=== PATIENT | female | born 1995 | race Caucasian/White ===

== ENCOUNTER 2019-09-30 08:20 | Outpatient (RCR) | payer OTHER, SELFPAY ==
[2019-09-30 10:03] LABS: Hematocrit 32.5 % (37.0-47.0); Hemoglobin 10.8 g/dL (12.0-15.0)
[2019-09-30 10:17] LABS: Glucose 1 Hour PP 50gm Dose 130 mg/dL
[2019-09-30 10:56] LABS: HIV 1/2 Ab P24 Ag Result Negative (Negative)
[2019-09-30] MEDS: RHO(D) IMMUNE GLOBULIN 300 MCG SYRINGE IM (14:19)
[2019-10-01 07:48] LABS: Rapid Plasma Reagin Non-Reactive (NonReactive)
== END 2019-12-29 23:59 | disposition home or self-care (01) ==
LOC: ANHLAB 08:20
PROVIDERS: PCP Internal Medicine Cardiovascular Disease; Visit Provider Obstetrics & Gynecology
DX: Z36.89 Encounter for other specified antenatal screening (principal); Z29.13 Encounter for prophylactic Rho(D) immune globulin; O36.0990 Maternal care for other rhesus isoimmunization, unspecified trimester, not applicable or unspecified; Z3A.00 Weeks of gestation of pregnancy not specified
CPT/HCPCS: 36415; 82947; 85014; 85018; 86592; 86703; 86850; 86900; 86901; 90384; 96372; G0432; J2790

== ENCOUNTER 2019-12-14 06:15 | Inpatient (IN) | payer OTHER, SELFPAY ==
[2019-12-14] VITALS (176 sets, daily range): BP systolic 77–129; BP diastolic 21–85; PULSE 66–119; TEMP 36.3–37.5; O2SAT 86–100; BMI 29.9
--- NOTE | 2019-12-14 07:17 | LDADM ---
This patient, Meredith Bernard, was admitted to Labor/Delivery/Recovery 109 on 12/14/19 at 06:15. Plans for labor, pain management and were discussed with patient. Patient/family oriented to hospital policies and general routines including ID bracelet, bed and alarms, visiting hours, pain management, procedures, bathroom and other care routines, personal items, smoking policy, room service/diet and guest tray routines, infant security routines, and visiting hours. Patient/Family are encouraged to report perceived risks to care and to ask questions if they do not understand what they are told or what they should do. See OBIX for further documentation.
--- NOTE | 2019-12-14 07:17 | WPDANESEPP ---
Anes - Eval Pre Procedure Procedure: Operation Date: 12/16/19 10:30 Labor epidural Date/Time: 12/14/19 07:17 Surgeon: radha Preop Diagnosis: pain during labor Pre Op Diagnosis: Induction of Labor Patient Data Age: 24 Gender: F Height: Weight: Last Vital Signs Pulse 95 12/14/19 07:00 BP 122/78 12/14/19 07:00 Allergies Allergy/AdvReac Type Severity Reaction Status Date / Time codeine Allergy Mild hives Verified 03/20/15 19:37 Home Medications Medication Instructions Recorded Confirmed Type PNV cmb#95-ferrous fumarate-FA 1 tablet PO DAILY 11/29/19 11/29/19 History [] ferrous sulfate 325 mg PO DAILY 11/29/19 11/29/19 History sertraline 50 mg PO DAILY 11/29/19 11/29/19 History Patient hx anesthesia problems: none Family hx anesthesia problems: none PMFSH Past Medical History Medical History (Updated 12/14/19 @ 07:19 by Vikki Colón CRNA) Anemia Depression Intrauterine Family History Family History (Updated 11/29/19 @ 14:33 by Vitor Singh RN) Other No pertinent family history Social History Social History Substance use: never Gender identity (if verbalized by the patient): Female Spiritual care concerns: No Exam Day of Procedure 12/14/19 07:17
--- NOTE | 2019-12-14 07:37 | WPDOBADMIT ---
Obstetrics - Admit Note Admission Note: record reviewed. No pertinent additions to the history and/or any subsequent changes in the physical findings that are not consistent with the expected course of the were found. Additions to the history and/or subsequent changes in the physical findings follow. G1 at 39+0 for induction of labor. Cephalic presentation confirmed at bedside. Cervix 1-230/-2. AROM with clear fluid. GBS+ so continue antibiotics.
[2019-12-14] MEDS: LACTATED RINGERS 1,000 ML 125 ML IV CONT ×3 (07:38→11:11)
[2019-12-14] MEDS: AMPICILLIN 2 GM/NS 100 ML 2 GM/100 ML BAG IVPB (07:39)
[2019-12-14] MEDS: OXYTOCIN 30 UNITS/NS 500 ML 30 UNITS/500 ML BAG IV CONT (07:44)
[2019-12-14 07:56] LABS: Basophils Percent Auto 0.3 % (0.2-1.2); Eosinophils Percent Auto 0.4 % (0-4.4); Hemoglobin 12.8 g/dL (12.0-15.0); Immature Granulocyte Absolute 0.03 K/mm3 (0.00-0.031); Immature Granulocyte Percent A 0.4 % (0-0.5); Lymphocytes Absolute Auto 1.94 K/mm3 (0.9-3.2); Lymphocytes Percent Auto 24.3 % (18.3-44.2); Mean Corpuscular HGB Conc 33.7 g/dl (32-36); Mean Corpuscular Hemoglobin 28.8 pg (26-34); Mean Corpuscular Volume 85.6 fl (80-100); Mean Platelet Volume 11.6 fl (7.4-10.4); Monocytes Absolute Auto 0.5 K/mm3 (0.1-0.6); Monocytes Percent Auto 6.6 % (2.6-8.5); Neutrophils Absolute Auto 5.4 K/mm3 (1.3-6.7); Platelet Count Result 170 k/mm3 (150-375); Red Blood Count 4.44 M/mm3 (4.2-5.4); Red Cell Distribution Width 14.9 % (11.5-14.5)
[2019-12-14] MEDS: AMPICILLIN 1 GM/NS 50 ML 1 GM/50 ML BAG IVPB ×2 (11:10→16:56)
[2019-12-14 13:21] LABS: Rapid Plasma Reagin Non-Reactive (NonReactive)
--- NOTE | 2019-12-14 18:13 | P.PCNOB_ITS ---
OB - Delivery Note Procedure Delivery date: 12/14/19 Procedure: Procedures Operation Date: 12/16/19 10:30 <No data on this case meets the specified criteria> Intrapartal events: None Induction method: AROM and per pitocin protocol Delivery monitor: external FHT and internal uterine Route of delivery: Specimen: No Estimated blood loss (mL): 75 Anesthesia type: Epidural Disposition: floor [place] [facility] Date of : 12/14/19 Time of : 18:01 Weeks of gestation at delivery: 39 Infant gender: Male Weight (pounds): 8 Weight (ounces): 15 presentation: vertex position: Left Occiput Anterior Placenta delivery description: Spontaneous cord vessel description: 3 Vessels score one minute: 8 score five minutes: 9
[2019-12-14] MEDS: OXYTOCIN 30 UNITS/NS 500 ML 30 UNITS/500 ML BAG 125 UNITS IV CONT (18:37)
[2019-12-14] MEDS: WITCH HAZEL 40 PADS 1 PAD TOPICAL (20:02)
[2019-12-14] MEDS: BENZOCAINE 20% AER SPR (*SP) 56 GM CAN 1 SPRAY TOPICAL (20:02)
[2019-12-14] MEDS: IBUPROFEN 600 MG TABLET PO (21:25)
[2019-12-15 04:13] LABS: Hematocrit 35.2 % (37.0-47.0); Hemoglobin 11.9 g/dL (12.0-15.0)
--- NOTE | 2019-12-15 07:40 | PM.OBPNVD ---
OB - PN: Subj Subjective Date/time seen: 12/15/19 07:40 Patient comments: no complaints baby status: doing well feeding status: exclusively breast feeding OB - PN: Obj Data Labs CBC & Chem 7: 12/15/19 03:48 Labs: Laboratory Results - last 24 hr 12/14/19 12/14/19 12/14/19 07:23 07:23 07:23 WBC 8.0 RBC 4.44 Hgb 12.8 Hct 38.0 MCV 85.6 MCH 28.8 MCHC 33.7 RDW 14.9 H Plt Count 170 MPV 11.6 H Immature Gran % (Auto) 0.4 Neut % (Auto) 68.0 Lymph % (Auto) 24.3 [place] % (Auto) 6.6 Eos % (Auto) 0.4 Baso % (Auto) 0.3 Lymph # (Auto) 1.94 [place] # (Auto) 0.5 Eos # (Auto) 0.0 Baso # (Auto) 0.0 Abs Immat Gran (auto) 0.03 Absolute Neuts (auto) 5.4 Absolute Nucleated RBC 0.0 Nucleated RBC % 0.0 RPR Non-reactive Blood Type A Negative Antibody Screen Positive Antibody Identification Passive Due to RH Imm Glob Antigen Identification Cancelled MILADY, IgG Interpret Not Performed MILADY, Poly Interpret Negative MILADY, Complement Interp Not Performed Screen Baby's Blood Type Baby's MILADY Doses of RhIg Required 12/15/19 12/15/19 03:48 03:48 WBC RBC Hgb 11.9 L Hct 35.2 L MCV MCH MCHC RDW Plt Count MPV Immature Gran % (Auto) Neut % (Auto) Lymph % (Auto) [place] % (Auto) Eos % (Auto) Baso % (Auto) Lymph # (Auto) [place] # (Auto) Eos # (Auto) Baso # (Auto) Abs Immat Gran (auto) Absolute Neuts (auto) Absolute Nucleated RBC Nucleated RBC % RPR Blood Type A Negative Antibody Screen TNP Antibody Identification Antigen Identification MILADY, IgG Interpret MILADY, Poly Interpret MILADY, Complement Interp Screen Negative Baby's Blood Type O pos Baby's MILADY Negative Doses of RhIg Required 1 OB - PN A/P Plan day: 1 Plan: routine care Time Spent With Patient Time: Total time spent is greater than 50% in coordination of care (as documented) at patient's floor/unit and/or counseling patient: Review of Systems Review of Systems: All systems reviewed & are unremarkable except as noted in HPI and below Exam Const: General: comfortable Resp: Effort & Inspection: normal respiratory effort Psych: Appearance: grossly normal Affect: normal affect Attitude: cooperative Judgement: Good judgement present (Psych)
[2019-12-15 08:20] VITALS: BP 120/81; PULSE 75; RESP 18; TEMP 36.8; O2SAT 100
--- NOTE | 2019-12-15 08:50 | WPDANLDPN2 ---
Anes-Prog Note L&D Date/Time: 12/15/19 08:50 Comfortable throughout: labor and delivery Neuraxial method: epidural Epidural/Spinal procedure site: clean & non-tender Neuro status: Neuro function grossly intact. Cardiovascular status: normal Respiratory status: normal Airway patency: baseline Mental status: baseline Post-Op hydration status: normal Vital Signs: Last Vital Signs Temp 37.4 C 12/14/19 18:05 Pulse 88 12/14/19 19:45 BP 116/79 12/14/19 19:45 Pulse Ox 99 12/14/19 17:56 I/O: Intake & Output 12/14/19 12/15/19 12/15/19 23:59 07:59 15:59 Intake Total 1550 Output Total 210 Balance 1340 Post-procedural complaints: none Patient feedback: Patient satisfied with anesthetic care.
[2019-12-15] MEDS: CYCLOBENZAPRINE HCL 10 MG TABLET PO (09:26)
[2019-12-15] MEDS: RHO(D) IMMUNE GLOBULIN 300 MCG SYRINGE IM (12:27)
[2019-12-15] MEDS: IBUPROFEN 600 MG TABLET PO (12:30)
[2019-12-15 18:35] VITALS: BP 129/88; PULSE 90; RESP 18; TEMP 36.5; O2SAT 99
[2019-12-16] MEDS: IBUPROFEN 600 MG TABLET PO (04:29)
--- NOTE | 2019-12-16 07:48 | PM.OBPNVD ---
OB - PN: Subj Subjective Date/time seen: 12/16/19 07:48 OB - PN: Obj Data Labs CBC & Chem 7: 12/15/19 03:48 Labs: Laboratory Results - last 24 hr 12/15/19 03:48 Blood Type A Negative Antibody Screen TNP Screen Negative Baby's Blood Type O pos Baby's MILADY Negative Doses of RhIg Required 1 OB - PN A/P Plan day: 2 Plan: routine care and discharge home (F/U in 4 weeks) Time Spent With Patient Time: Total time spent is greater than 50% in coordination of care (as documented) at patient's floor/unit and/or counseling patient: Review of Systems Review of Systems: All systems reviewed & are unremarkable except as noted in HPI and below Exam Const: General: comfortable Resp: Effort & Inspection: normal respiratory effort Psych: Appearance: grossly normal Affect: normal affect Attitude: cooperative Judgement: Good judgement present (Psych)
[2019-12-16 08:45] VITALS: BP 112/77; PULSE 85; RESP 17; TEMP 36.6; O2SAT 97
[2019-12-16] MEDS: SERTRALINE HCL 50 MG TABLET PO (08:47)
--- NOTE | 2019-12-16 10:26 | PC.NURSE ---
Discharge instructions given to pt. NO questions or concerns at this time. Pt ambulated to exit with no difficulty
[2019-12-17 09:28] VITALS: BP 116/72; PULSE 83; RESP 20
--- NOTE | 2020-01-14 07:45 | PM.OBDSVD ---
DS: Admitting Diagnosis Admitting Diagnosis Admitting Diagnosis: Encounter for supervision of normal , unspecified, third trimester DS: Discharge Diagnosis Discharge Diagnosis (1) Term delivered: Code(s): O80 - Encounter for full-term uncomplicated delivery Status: Acute OB - DS: Summary OB Procedures : None OB Procedures Intrapartum: Spontaneous Vag Delivery OB Procedures: : None Peripartum Data Delivery Method: Natural Vaginal Procedures: Procedures Operation Date: 12/16/19 10:30 <No data on this case meets the specified criteria> Status at Discharge Functional status at discharge: independent ambulation Time Spent with Patient Time attestation: Total time spent providing and/or coordinating discharge services: Discharge Plan Discharge Attending physician on discharge: Guillermo Heredia Consulting providers: Tamar Fraire ; Sandy Rojo Discharging Clinician: Sandy Rojo Patient Disposition: Home, Self-Care Activity: as tolerated Diet: regular Discharge Instructions: Education: Mom and Baby Guide Given to: Mother Follow-Up: Call your delivering provider's office for an appointment to be seen in: 1 week Mom and baby should come to the [facility] for the follow-up appointment. Appointment Date/Time: at 12/17/19 @ 0900 What to expect at your follow-up visit: Call [phone] if you are unable to keep your appointment time. BREAST CARE: 1. Wear a snug supportive bra. 2. For engorgement discomfort: Breast Feeding: A. Apply warm moist washcloths B. Express milk as needed to relieve engorgement C. Wear loose clothing Bottle Feeding: A. May apply ice packs 3. For sore nipples: A. Identify correct latch-on B. Apply warm moist washcloths before and after nursing C. Air dry nipples after nursing D. May apply Lansinoh cream to nipples ABDOMINAL INCISION: (if applicable) 1. Allow incision to air dry 2. Do NOT use lotions for powders on your incision 3. When showering, allow soap and water to run over the incision, but do not wash incision EPISIOTOMY/PERINEAL CARE: 1. Until bleeding stops, use your chloe bottle after urinating 2. Change your pad frequently throughout the day 3. You may take sitz baths several times a day (fill your bathtub with warm water and soak for 20 minutes.) Do NOT bathe in the water 4. No tub baths until seen by your physician - You may shower ACTIVITY: 1. Rest as much as possible. 2. Do not exercise or lift anything heavier than your baby (such as laundry or other children.) 3. Avoid stairs or driving as much as possible. 4. Do not put anything into the vagina. No douching, tampons, or sexual activity until seen by physician. NOTIFY PHYSICIAN IF YOU HAVE ANY QUESTIONS OR IF ANY OF THE FOLLOWING SYMPTOMS OCCUR: 1. If your episiotomy or incision becomes red, swollen, or more painful than what you have experienced in the hospital. 2. If your vaginal bleeding becomes foul smelling. 3. If your vaginal bleeding becomes more heavy than a period or if your bleeding changes from pink to bright red. However, you may pass an occasional walnut-sized clot once or twice for the first week . 4. If you experience a sharp, shooting pain in you calves. 5. If you discover a hard, reddened area on your breast or if you experience flu-like symptoms. DIET: 1. Eat regular, well-balanced meals. 2. Drink plenty of fluids daily. If , drink to thirst. Patient Instructions: Antibiotic Form, Preeclampsia During (GEN), Vaginal Delivery (DC) Stand Alone Forms: General Discharge Information Follow-up/Referrals: Tammy Eric MD [Physician] - Discharge Medications: Continued ferrous sulfate 325 mg (65 mg iron) Tablet 325 mg PO DAILY RF: 0 sertr
== END 2019-12-16 10:27 | disposition home or self-care (01) | DRG 560 ==
LOC: ANHLDR 06:20 → ANHOB2 20:21
PROVIDERS: Obstetrics & Gynecology; Admitting Provider Obstetrics & Gynecology; PCP Internal Medicine Cardiovascular Disease; Visit Provider Obstetrics & Gynecology
DX: O99.824 Streptococcus B carrier state complicating childbirth (principal); Z37.0 Single live birth; Z3A.39 39 weeks gestation of pregnancy; O99.02 Anemia complicating childbirth; D64.9 Anemia, unspecified; O99.344 Other mental disorders complicating childbirth; F32.9 Major depressive disorder, single episode, unspecified
CPT/HCPCS: 36415; 85014; 85018; 85025; 85461; 86592; 86850; 86880; 86900; 86901; 86902; 90384; A9270; J0290; J2590; J2790; J2795; J7120

== ENCOUNTER 2020-03-28 10:25 | Outpatient (CLI) | payer OTHER, SELFPAY ==
--- NOTE | ~2020-03-28 | CT_ITS ---
EXAMINATION: CTA chest PE protocol DATE: 03/28/2020 16:14 INDICATION: First of breath, dyspnea on exertion TECHNIQUE: Computed tomography angiography (CTA) of the chest was performed with 100 mL Omnipaque-350 intravenous contrast timed to evaluate the pulmonary arteries. Coronal maximum intensity projection 3D-reconstructions were created by the technologist. The dose-length product (DLP) was 293.49 mGy-cm. Automated exposure control and iterative reconstruction technique were employed. COMPARISON: None. FINDINGS: The pulmonary arteries are well-opacified. No pulmonary embolism is identified. The lungs a re free of acute opacities. There is no pleural effusion or pneumothorax. No pathologically enlarged thoracic lymph nodes are identified. The heart size is normal. The visualized osseous structures are unremarkable. IMPRESSION: 1. No pulmonary embolism or acute cardiopulmonary abnormality. Reviewed, dictated and finalized at location A.
--- NOTE | ~2020-03-28 | XR_ITS ---
EXAMINATION: XR chest 2V EXAM DATE: 03/28/2020 10:54 INDICATION: Dyspnea, chest pain. Symptoms 3 days. TECHNIQUE: Frontal and lateral projections of the chest obtained and reviewed. There is no prior ene dy for comparison. FINDINGS: The lungs are clear. There are no pleural effusions. The cardiomediastinal silhouette is within normal limits. There is no pneumothorax suspected. The bones and soft tissues are unremarkab le. IMPRESSION: Normal chest x-ray exam. Reviewed, dictated and finalized at location B. IMPRESSION: Normal chest x-ray exam.
[2020-03-28 10:59] LABS: Basophils Absolute Auto 0.02 K/mm3 (0.00-0.10); Basophils Percent Auto 0.3 % (0.0-1.0); Eosinophils Absolute Auto 0.07 K/mm3 (0.02-0.50); Eosinophils Percent Auto 0.9 % (1.0-6.0); Hematocrit 40.7 % (35.0-49.0); Hemoglobin 13.4 g/dL (12.0-15.0); Immature Granulocyte Absolute 0.03 K/mm3 (0.00-0.00); Immature Granulocyte Percent A 0.4 % (0.0-0.0); Lymphocytes Absolute Auto 2.94 K/mm3 (1.10-4.50); Lymphocytes Percent Auto 37.5 % (18.0-42.0); Mean Corpuscular HGB Conc 32.9 g/dL (32.0-36.0); Mean Corpuscular Hemoglobin 28.9 pg (27.0-31.0); Mean Corpuscular Volume 87.7 fL (78.0-102.0); Mean Platelet Volume 10.7 fl (9.2-11.8); Monocytes Absolute Auto 0.53 K/mm3 (0.10-0.90); Monocytes Percent Auto 6.8 % (2.0-11.0); Neutrophils Absolute Auto 4.2 K/mm3 (1.7-7.2); Neutrophils Percent Auto 54.1 % (50.0-70.0); Platelet Count Result 278 K/mm3 (150-420); Red Blood Count 4.64 M/mm3 (4.20-5.40); White Blood Count 7.8 K/mm3 (4.8-10.8)
[2020-03-28 11:25] LABS: Alanine Aminotransferase 24 U/L (14-59); Albumin Level 3.8 g/dL (3.4-5.0); Alkaline Phosphatase 97 U/L (46-116); Anion Gap 9 mmol/L (8-16); Aspartate Amino Transferase 10 U/L (15-37); Bilirubin,Total 0.4 mg/dL (0.00-1.00); Blood Urea Nitrogen 9 mg/dL (7-18); CRP 2.7 mg/dL (0.0-0.9); Calcium 8.9 mg/dL (8.5-10.1); Carbon Dioxide 25 mmol/L (21-32); Chloride 103 mmol/L (98-108); Creatine Kinase 56 U/L (26-192); Creatine Kinase MB < 0.50 ng/mL (0.00-5.00); Estimated Glomerular Filt Rate > 60; Glucose 85 mg/dL (70-99); Osmolality Calculated 281 mOsm/kg (285-295); Potassium 4.2 mmol/L (3.5-5.1); Sodium 137 mmol/L (136-145); Total Protein 7.8 g/dL (6.4-8.2); Troponin I < 0.02 ng/mL (0.00-0.056)
[2020-03-28 11:43] LABS: D Dimer 0.75 mg/L (0.19-0.50)
[2020-03-28 12:02] LABS: Erythrocyte Sedimentation Rate 14 mm/hr (0-15)
== END 2020-03-28 10:26 | disposition home or self-care (01) ==
PROVIDERS: PCP Internal Medicine; Visit Provider Internal Medicine
DX: R07.9 Chest pain, unspecified (principal); R06.00 Dyspnea, unspecified
CPT/HCPCS: 36415; 71046; 71275; 80053; 82550; 82553; 84484; 85025; 85380; 85652; 86140; Q9965

== ENCOUNTER 2021-02-11 20:16 | Emergency (ER) | payer OTHER, SELFPAY ==
[2021-02-11 20:31] VITALS: BP 127/80; PULSE 96; RESP 18; TEMP 36.6; O2SAT 98
--- NOTE | 2021-02-11 21:17 | ED_ITS ---
HPI - Ear Problem General Chief complaint: Ear Stated complaint: ear ache, body aches Related Data Home Medications Medication Instructions Recorded Confirmed sertraline 50 mg PO DAILY 11/29/19 02/11/21 Allergies Allergy/AdvReac Type Severity Reaction Status Date / Time codeine Allergy Mild hives Verified 03/20/15 19:37 [facility] Past Medical History Medical History (Updated 02/11/21 @ 21:20 by Krystle Johnson MD) Anemia Depression Intrauterine Family History Family History Other No pertinent family history Social History Social History Years smoked: 1 Smoking status: Former smoker Tobacco type: cigarettes Second hand tobacco smoke exposure: No Substance use: never Gender identity (if verbalized by the patient): Female Spiritual care concerns: No Course Vital Signs Vital signs: Vital Signs Temperature 36.6 C 02/11/21 20:31 Pulse Rate 96 02/11/21 20:31 Respiratory Rate 18 02/11/21 20:31 Blood Pressure 127/80 02/11/21 20:31 Pulse Oximetry 98 02/11/21 20:31 Temperature 36.6 C 02/11/21 20:31 Pulse Rate 96 02/11/21 20:31 Respiratory Rate 18 02/11/21 20:31 Blood Pressure 127/80 02/11/21 20:31 Pulse Oximetry 98 02/11/21 20:31 Medical Decision Making Vital Signs Vital Signs: Vital Signs Temperature 36.6 C 02/11/21 20:31 Pulse Rate 96 02/11/21 20:31 Respiratory Rate 18 02/11/21 20:31 Blood Pressure 127/80 02/11/21 20:31 Pulse Oximetry 98 02/11/21 20:31 Temperature 36.6 C 02/11/21 20:31 Pulse Rate 96 02/11/21 20:31 Respiratory Rate 18 02/11/21 20:31 Blood Pressure 127/80 02/11/21 20:31 Pulse Oximetry 98 02/11/21 20:31 Discharge Plan Discharge Clinical Impression: Nonspecific syndrome suggestive of viral illness Eustachian tube dysfunction Qualifiers: Laterality: bilateral Qualified Code(s): H69.83 - Other specified disorders of Eustachian tube, bilateral Pharyngitis Qualifiers: Pharyngitis/tonsillitis etiology: unspecified etiology Qualified Code(s): J02.9 - Acute pharyngitis, unspecified Patient Disposition: Home, Self-Care Condition: Stable Instructions: Antibiotic Form Additional Instructions: Home. May RTC prn. PMD in 1-2 days. RX below. Off work x 2 days. OTC tylenol/motrin. Prescriptions: New amoxicillin 875 mg tablet 875 mg PO Q12H Qty: 20 RF: 0 pseudoephedrine-guaifenesin [Mucinex D] 60-600 mg tablet extended release 12 hr 1 tablet PO BID PRN (Reason: cold symptoms) Qty: 20 RF: 0 No Action sertraline 50 mg Tablet 50 mg PO DAILY RF: 0 Follow-up/Referrals: Abdullahi Gaspar MD [Primary Care Provider] - Time of Disposition: 21:23
[2021-02-11] MEDS: guaiFENesin/DEXTROMETHORPHAN 5 ML UDC 10 ML PO (21:19)
[2021-02-11] MEDS: ACETAMINOPHEN 325 MG TABLET 650 MG PO (21:19)
[2021-02-11 21:23] VITALS: BP 114/79; PULSE 87; RESP 20; TEMP 36.4; O2SAT 98
--- NOTE | 2021-02-11 21:25 | ED.EAR ---
HPI - Ear Problem General Chief complaint: Ear Stated complaint: ear ache, body aches Time Seen by Provider: 02/11/21 20:25 Source: patient and RN notes reviewed Mode of arrival: ambulatory Limitations: no limitations History of Present Illness Complaint: ear pain Location: bilateral Duration: constant Severity: mild Relieving factors: nothing Exacerbating factors: position of head Context: Reports other (mild dizziness) Discharge from ear: Reports no Treatment prior to arrival: none Related Data Home Medications Medication Instructions Recorded Confirmed sertraline 50 mg PO DAILY 11/29/19 02/11/21 Allergies Allergy/AdvReac Type Severity Reaction Status Date / Time codeine Allergy Mild hives Verified 03/20/15 19:37 Review of Systems Review of Systems: All systems reviewed & are unremarkable except as noted in HPI and below Constitutional: Constitutional: Reports as per HPI and Reports no additional constitutional complaints Eyes: Eyes: Reports as per HPI and Reports no additional eye complaints ENT: Reports system reviewed and no additional complaints, except as documented and Reports as per HPI Cardiovascular: Cardiovascular: Reports as per HPI and Reports no additional cardiovascular complaints Respiratory: Respiratory: Reports as per HPI and Reports no additional respiratory complaints Gastrointestinal: Gastrointestinal: Reports as per HPI and Reports no additional gastrointestinal complaints Genitourinary: Genitourinary: Reports no additional female genitourinary complaints and Reports as per HPI Musculoskeletal: Musculoskeletal: Reports no additional musculoskeletal complaints and Reports as per HPI Integumentary/Breasts: Skin/Breast: Reports system reviewed and no additional complaints, except as docu and Reports as per HPI Neurologic: Reports system reviewed and no additional complaints, except as documented and Reports as per HPI Psychiatric: Psychiatric: Reports no additional psychiatric complaints and Reports as per HPI Endocrine: Endocrine: Reports no additional endocrine complaints and Reports as per HPI Hematologic/Lymphatic: Hematologic/Lymphatic: Reports no additional hematologic/lymphatic complaints and Reports as per HPI Allergic/Immunologic: Allergic/Immunologic: Reports no additional allergic/immunologic complaints and Reports as per HPI PMFSH Past Medical History Medical History Anemia Depression Intrauterine Family History Family History Other No pertinent family history Social History Social History Years smoked: 1 Smoking status: Former smoker Tobacco type: cigarettes Second hand tobacco smoke exposure: No Substance use: never Gender identity (if verbalized by the patient): Female Spiritual care concerns: No Exam Const: General: no acute distress and alert Nutritional Appearance: well nourished Orientation/consciousness: patient oriented x3 Limitations: no limitations HENMT: Head: normal to inspection Ears: external ears normal and TM's normal bilaterally General nose exam: Normal external nose present and Normal nares present Mouth: Yes lip normal and Yes moist mucous membranes Teeth and gingiva: dentition normal Eyes: Conjunctivae: conjunctivae normal Pupils: Equal, round and reactive pupils present EOM: EOMs intact bilaterally Neck: Neck: normal visual inspection Chest: Chest palpation & inspection: normal inspection of the chest Resp: Effort & Inspection: normal respiratory effort Auscultation: clear to auscultation bilaterally Cardio: Rate: regular rate Rhythm: regular rhythm GI: Inspection: distended Auscultation: normal bowel sounds : General: Yes no CVA tenderness Back/Spine/Pelvis: Back: no CVA tenderness Skin: General skin exam: normal
== END 2021-02-11 21:34 | disposition home or self-care (01) ==
PROVIDERS: Emergency Provider Emergency Medicine; PCP Internal Medicine
DX: H69.83 Other specified disorders of Eustachian tube, bilateral (principal); J02.9 Acute pharyngitis, unspecified
CPT/HCPCS: 99283; A9270

== ENCOUNTER 2021-06-18 16:06 | Outpatient (CLI) | payer OTHER, SELFPAY ==
[2021-06-18 17:18] LABS: Influenza A QL RT-PCR Negative (Negative); Influenza B QL RT-PCR Negative (Negative); SARS-CoV-2 RNA PCR Negative (Negative)
== END 2021-06-18 16:07 | disposition home or self-care (01) ==
LOC: CHSLAB 16:08
PROVIDERS: PCP Internal Medicine; Visit Provider Nurse Practitioner Family
DX: Z20.822 Contact with and (suspected) exposure to COVID-19 (principal); R50.9 Fever, unspecified
CPT/HCPCS: 87502; C9803; U0003; U0005

== ENCOUNTER 2022-07-12 16:51 | Outpatient (CLI) | payer OTHER, SELFPAY ==
[2022-07-12 17:41] LABS: SARS-CoV-2 RNA PCR Negative (Negative)
== END 2022-07-12 16:52 | disposition home or self-care (01) ==
LOC: CHSLAB 16:55
PROVIDERS: PCP Internal Medicine; Visit Provider Internal Medicine
DX: Z20.822 Contact with and (suspected) exposure to COVID-19 (principal)
CPT/HCPCS: U0003; U0005

== ENCOUNTER 2023-01-13 11:05 | Outpatient (CLI) | payer OTHER, SELFPAY ==
--- NOTE | ~2023-01-13 | XR_ITS ---
Clinical Indication: Cough PA and lateral views of the chest: Comparison: 03/28/2020 Findings: The lungs are clear, without evidence of focal consolidation or pleural effusion. Cardiome diastinal silhouette is within normal limits. Bones and soft tissues are unremarkable. Impression: Normal chest. Reviewed, dictated and finalized at [facility]. Impression: Normal chest.
[2023-01-13 11:23] LABS: Basophils Absolute Auto 0.04 K/mm3 (0.00-0.10); Basophils Percent Auto 0.5 % (0.0-1.0); Eosinophils Absolute Auto 0.12 K/mm3 (0.02-0.50); Eosinophils Percent Auto 1.4 % (1.0-6.0); Hematocrit 40.1 % (35.0-49.0); Hemoglobin 13.4 g/dL (12.0-15.0); Immature Granulocyte Absolute 0.03 K/mm3 (0.00-0.00); Immature Granulocyte Percent A 0.4 % (0.0-0.0); Lymphocytes Absolute Auto 2.62 K/mm3 (1.10-4.50); Lymphocytes Percent Auto 31.2 % (18.0-42.0); Mean Corpuscular HGB Conc 33.4 g/dL (32.0-36.0); Mean Corpuscular Hemoglobin 27.8 pg (27.0-31.0); Mean Corpuscular Volume 83.2 fL (78.0-102.0); Mean Platelet Volume 11.2 fl (9.2-11.8); Monocytes Absolute Auto 0.58 K/mm3 (0.10-0.90); Monocytes Percent Auto 6.9 % (2.0-11.0); Neutrophils Percent Auto 59.6 % (50.0-70.0); Platelet Count Result 280 K/mm3 (150-420); Red Blood Count 4.82 M/mm3 (4.20-5.40); Red Cell Distribution Width 12.9 % (11.6-14.4); White Blood Count 8.4 K/mm3 (4.8-10.8)
[2023-01-13 11:55] LABS: Alanine Aminotransferase 28 U/L (14-59); Albumin Level 3.7 g/dL (3.4-5.0); Alkaline Phosphatase 102 U/L (46-116); Anion Gap 11 mmol/L (8-16); Aspartate Amino Transferase 13 U/L (15-37); Bilirubin,Total 0.3 mg/dL (0.00-1.00); Blood Urea Nitrogen 10 mg/dL (7-18); Calcium 9.1 mg/dL (8.5-10.1); Carbon Dioxide 26 mmol/L (21-32); Chloride 102 mmol/L (98-108); Estimated Glomerular Filt Rate > 60; Glucose 87 mg/dL (70-99); Osmolality Calculated 286 mOsm/kg (285-295); Potassium 4.2 mmol/L (3.5-5.1); Sodium 139 mmol/L (136-145); Total Protein 7.2 g/dL (6.4-8.2)
== END 2023-01-13 11:06 | disposition home or self-care (01) ==
LOC: CHSLAB 11:08
PROVIDERS: PCP Internal Medicine; Visit Provider Nurse Practitioner Family
DX: J06.9 Acute upper respiratory infection, unspecified (principal); R05.9 Cough, unspecified
CPT/HCPCS: 36415; 71046; 80053; 85025

== ENCOUNTER 2023-06-12 19:36 | Emergency (ER) | payer OTHER, SELFPAY ==
--- NOTE | ~2023-06-12 | CT_ITS ---
EXAMINATION: CT abdomen pelvis w con DATE: 06/12/2023 20:49 INDICATION: Lower abdominal pain. TECHNIQUE: Computed tomography (CT) of the abdomen and pelvis was performed with 100 mL Omnipaque 350 intravenous contrast. Automated exposure control and iterative reconstruction technique were employe d. The dose-length product was 643.49 mGy-cm. COMPARISON: None. FINDINGS: The visualized portions of the lung bases are clear without pneumonia or pleural effusion. The heart size is normal. No pericardial effusion. There is a small sliding hiatal hernia. The liver, spleen, gallbladder, pancreas, adrenal glands, and kidneys are normal. There are no dilated loops of bowel. There is fat stranding around an epiploic appendage of ascending colon, consistent with epipl oic appendagitis. The appendix is normal. There are no pathologically enlarged lymph nodes. There is no free intraperitoneal fluid. There is mild thoracic and lumbar spondylosis. IMPRESSION: 1. Epiploic appendagitis of ascending colon. 2. Small sliding hiatal hernia. Reviewed, dictated and finalized at location E. R ROLLER
[2023-06-12 19:40] VITALS: BP 133/112; PULSE 102; RESP 18; TEMP 36.6; O2SAT 99
[2023-06-12] MEDS: KETOROLAC 30 MG/ML VIAL (*BKC) IV PUSH (20:00)
[2023-06-12] MEDS: ONDANSETRON INJ 4 MG/2 ML VIAL IV PUSH (20:00)
[2023-06-12] MEDS: SODIUM CHLORIDE 0.9% IV 1,000 ML 999 ML IV CONT (20:01)
[2023-06-12 20:02] LABS: Basophils Absolute Auto 0.04 K/mm3 (0.00-0.10); Basophils Percent Auto 0.3 % (0.0-1.0); Eosinophils Absolute Auto 0.12 K/mm3 (0.02-0.50); Hematocrit 40.8 % (35.0-49.0); Hemoglobin 13.5 g/dL (12.0-15.0); Immature Granulocyte Absolute 0.04 K/mm3 (0.00-0.00); Immature Granulocyte Percent A 0.3 % (0.0-0.0); Lymphocytes Absolute Auto 3.75 K/mm3 (1.10-4.50); Lymphocytes Percent Auto 31.9 % (18.0-42.0); Mean Corpuscular HGB Conc 33.1 g/dL (32.0-36.0); Mean Corpuscular Hemoglobin 27.8 pg (27.0-31.0); Mean Platelet Volume 11.2 fl (9.2-11.8); Monocytes Absolute Auto 0.66 K/mm3 (0.10-0.90); Monocytes Percent Auto 5.6 % (2.0-11.0); Neutrophils Absolute Auto 7.1 K/mm3 (1.7-7.2); Neutrophils Percent Auto 60.9 % (50.0-70.0); Platelet Count Result 298 K/mm3 (150-420); Red Blood Count 4.86 M/mm3 (4.20-5.40); Red Cell Distribution Width 12.4 % (11.6-14.4); White Blood Count 11.8 K/mm3 (4.8-10.8)
[2023-06-12 20:04] LABS: Appearance Urine Clear (Clear); Bilirubin Urine Negative (Negative); Blood Urine Negative (Negative); Color Urine Light Yellow (Yellow); Glucose Urine UA Negative (Negative); Ketones Urine Negative (Negative); Leukocyte Esterase Ur Trace LEU/UL (Negative); Nitrate Urine Negative (Negative); Protein Urine Negative (Negative); Specific Grav Ur 1.025 (1.010-1.020); Urobilinogen Urine 0.2 mg/dL (0.2-1.0)
[2023-06-12 20:10] LABS: Add Urine Microscopic? YES; Bacteria Urine 2+ /hpf; Pregnancy On Board Control Positive; RBC Urine 0-2 /hpf (0-2); Squamous Epithelial Cell Urine Many /hpf (Few); Urine Pregnancy Test Negative
[2023-06-12 20:16] LABS: INR 0.9; Partial Thromboplastin Time 28.8 SEC (23.90-30.70); Prothrombin Time 10.3 Seconds (9.50-12.10)
[2023-06-12 20:18] LABS: Alanine Aminotransferase 21 U/L (14-59); Albumin Level 3.8 g/dL (3.4-5.0); Alkaline Phosphatase 88 U/L (46-116); Anion Gap 6 mmol/L (8-16); Aspartate Amino Transferase < 10 U/L (15-37); Bilirubin,Total 0.2 mg/dL (0.00-1.00); Blood Urea Nitrogen 11 mg/dL (7-18); Calcium 9.2 mg/dL (8.5-10.1); Carbon Dioxide 28 mmol/L (21-32); Chloride 100 mmol/L (98-108); Estimated Glomerular Filt Rate > 60; Glucose 104 mg/dL (70-99); Lipase 25 U/L (16-77); Osmolality Calculated 277 mOsm/kg (285-295); Potassium 3.5 mmol/L (3.5-5.1); Sodium 134 mmol/L (136-145); Total Protein 7.8 g/dL (6.4-8.2)
[2023-06-12 20:23] LABS: Lactic Acid Reflex 1.7 mmol/L (0.4-2.0)
--- NOTE | 2023-06-12 20:50 | ED.ABDPAIN ---
HPI - Abdominal Pain General Chief Complaint: Abdominal Pain Stated Complaint: Abd Pain Time Seen by Provider: 06/12/23 19:42 Source: patient and family Mode of arrival: ambulatory Limitations: no limitations History of Present Illness HPI narrative: This is 28-year-old female who presents with abdominal pain suprapubic area localizing to right lower quadrant with episodes of nausea with low-grade fever with no flank pain does have some dysuria with no hematuria had an episode of diarrhea with no chest pain or shortness of breath. MD elicited complaint: abdominal pain Onset (ago): day(s) Pain Consistency: intermittent Location: RLQ and suprapubic Severity: moderate Pain scale (0-10): 5 Quality: aching Associated symptoms: nausea Related Data Home Medications Medication Instructions Recorded Confirmed omeprazole 20 mg capsule,delayed 20 mg PO DAILY 06/12/23 06/12/23 release sertraline 100 mg tablet 100 mg PO DAILY 06/12/23 06/12/23 Allergies Allergy/AdvReac Type Severity Reaction Status Date / Time codeine Allergy Mild hives Verified 06/12/23 19:48 Review of Systems Review of Systems: All systems reviewed & are unremarkable except as noted in HPI and below PMFSH Past Medical History Medical History Anemia Depression Intrauterine Family History Family History Other No pertinent family history Social History Social History Years smoked: 1 Smoking status: Former smoker Tobacco type: cigarettes Second hand tobacco smoke exposure: No Substance use: never Gender identity (if verbalized by the patient): Female Spiritual care concerns: No Exam Const: General: healthy appearing and no acute distress Nutritional Appearance: well nourished Orientation/consciousness: patient oriented x3 Neck: Neck: normal visual inspection and no lymphadenopathy Chest: Chest palpation & inspection: normal inspection of the chest Resp: Effort & Inspection: normal respiratory effort Auscultation: clear to auscultation bilaterally Cardio: Rate: regular rate Rhythm: regular rhythm GI: GI Palp: Yes Soft to palpation and Yes Tenderness to palpation present (GI) : General: Yes bladder normal to palpation Back/Spine/Pelvis: Back: no CVA tenderness Skin: General skin exam: normal color Rashes: no rashes Neuro: General: patient oriented x3 and moves all extremities Extrem: General: normal to inspection Course Course Emergency Course: Patient received IV fluids and 30mg IV Toradol and Zofran for nausea patient after reassessment has some improvement of her discomfort, her white blood cell count mildly elevated at 11,000 thousand, UA shows urinary tract infection, and CT scan of abdomen and pelvis are reviewed and no acute appendicitis, but does have epiploic appendagitis this was explained to patient and family and advised to follow with primary if symptoms persist or worsen and we prescribed antibiotics for her urinary tract infection. Vital Signs Vital signs: Vital Signs Temperature 36.6 C 06/12/23 19:40 Pulse Rate 102 H 06/12/23 19:40 Respiratory Rate 18 06/12/23 19:40 Blood Pressure 133/112 H 06/12/23 19:40 Pulse Oximetry 99 06/12/23 19:40 Oxygen Delivery Room Air 06/12/23 19:40 Temperature 36.6 C 06/12/23 19:40 Pulse Rate 82 06/12/23 22:03 Respiratory Rate 18 06/12/23 22:03 Blood Pressure 124/90 06/12/23 22:03 Pulse Oximetry 100 06/12/23 22:03 Oxygen Delivery Room Air 06/12/23 22:03 MDM - Abdominal Pain Lab Data 06/12/23 19:58 06/12/23 19:58 Labs: Lab Results 06/12/23 Range/Units 19:58 WBC 11.8 H (4.8-10.8) K/mm3 RBC 4.86 (4.20-5.40) M/mm3 Hgb 13.5 (12.0-15.0) g/dL Hct 40.8 (35.0-49.0) % MCV 84.0 (78.0-
[2023-06-12 22:03] VITALS: BP 124/90; PULSE 82; RESP 18; O2SAT 100
== END 2023-06-12 22:03 | disposition home or self-care (01) ==
PROVIDERS: Emergency Provider Emergency Medicine; PCP Internal Medicine
DX: K63.89 Other specified diseases of intestine (principal); N30.00 Acute cystitis without hematuria; Z79.899 Other long term (current) drug therapy; Z87.891 Personal history of nicotine dependence
CPT/HCPCS: 36415; 74177; 80053; 81001; 81025; 83605; 83690; 85025; 85610; 85730; 86140; 96361; 96365; 96375; 99284; J0696; J1885; J2405; J7030; Q9967

== ENCOUNTER 2024-04-03 09:11 | Outpatient (CLI) | payer OTHER, SELFPAY ==
[2024-04-03 09:42] LABS: Basophils Absolute Auto 0.03 K/mm3 (0.00-0.10); Basophils Percent Auto 0.4 % (0.0-1.0); Eosinophils Percent Auto 1.2 % (1.0-6.0); Hematocrit 39.2 % (35.0-49.0); Hemoglobin 13.8 g/dL (12.0-15.0); Immature Granulocyte Absolute 0.03 K/mm3 (0.00-0.00); Immature Granulocyte Percent A 0.4 % (0.0-0.0); Lymphocytes Percent Auto 35.9 % (18.0-42.0); Mean Corpuscular HGB Conc 35.2 g/dL (32-36); Mean Corpuscular Hemoglobin 29.1 pg (27.0-31.0); Mean Corpuscular Volume 82.5 fL (78.0-102.0); Monocytes Absolute Auto 0.57 K/mm3 (0.10-0.90); Monocytes Percent Auto 6.8 % (2.0-11.0); Neutrophils Absolute Auto 4.63 K/mm3 (1.70-7.20); Neutrophils Percent Auto 55.3 % (50.0-70.0); Platelet Count Result 272 K/mm3 (150-420); Red Blood Count 4.75 M/mm3 (4.20-5.40); Red Cell Distribution Width 12.7 % (11.6-14.4); White Blood Count 8.4 K/mm3 (4.8-10.8)
[2024-04-03 10:41] LABS: Erythrocyte Sedimentation Rate 18 mm/hr (0-15); Rheumatoid Factor Screen Negative (Negative)
[2024-04-03 10:48] LABS: Alanine Aminotransferase 25 U/L (14-59); Albumin Level 3.7 g/dL (3.4-5.0); Alkaline Phosphatase 101 U/L (46-116); Anion Gap 11 mmol/L (4-12); Aspartate Amino Transferase 14 U/L (15-37); Bilirubin,Total 0.4 mg/dL (0.00-1.00); Blood Urea Nitrogen 12 mg/dL (7-18); CRP 1.2 mg/dL (0.0-0.9); Calcium 9.1 mg/dL (8.5-10.1); Carbon Dioxide 25 mmol/L (21-32); Chloride 102 mmol/L (98-108); Estimated Glomerular Filt Rate > 60; Folic Acid 11.3 ng/mL (8.6->20); Glucose 80 mg/dL (70-99); Iron 89 ug/dL (50-170); Osmolality Calculated 284 mOsm/kg (285-295); Percent Iron Saturation 23 % (12-57); Potassium 4.3 mmol/L (3.5-5.1); Sodium 138 mmol/L (136-145); Thyroid Stimulating Hormone 1.18 uIU/mL (0.36-3.74); Total Protein 7.2 g/dL (6.4-8.2); Uric Acid 6.7 mg/dL (2.6-6.0); Vitamin B12 400 pg/mL (193-986)
[2024-04-05 15:24] LABS: Vitamin D 25 Hydroxy 19 ng/mL (30-100)
[2024-04-06 15:33] LABS: Lyme Disease Ab (IgM), Blot NEGATIVE (NEGATIVE); Lyme Disease Ab(IgG), Blot NEGATIVE (NEGATIVE)
== END 2024-04-03 09:12 | disposition home or self-care (01) ==
LOC: CHSLAB 09:18
PROVIDERS: PCP Family Medicine; Visit Provider Family Medicine
DX: M25.50 Pain in unspecified joint (principal); F32.A Depression, unspecified
CPT/HCPCS: 36415; 80053; 82306; 82607; 82746; 83540; 83550; 84443; 84550; 85025; 85652; 86038; 86039; 86140; 86430; 86617

== ENCOUNTER 2024-06-19 09:31 | Outpatient (CLI) | payer OTHER, SELFPAY ==
[2024-06-19 09:57] LABS: Basophils Absolute Auto 0.02 K/mm3 (0.00-0.10); Basophils Percent Auto 0.3 % (0.0-1.0); Eosinophils Absolute Auto 0.09 K/mm3 (0.02-0.50); Eosinophils Percent Auto 1.3 % (1.0-6.0); Hemoglobin 13.3 g/dL (12.0-15.0); Immature Granulocyte Absolute 0.03 K/mm3 (0.00-0.00); Immature Granulocyte Percent A 0.4 % (0.0-0.0); Lymphocytes Percent Auto 27.3 % (18.0-42.0); Mean Corpuscular Hemoglobin 28.5 pg (27.0-31.0); Mean Corpuscular Volume 81.5 fL (78.0-102.0); Mean Platelet Volume 10.8 fl (9.2-11.8); Monocytes Absolute Auto 0.56 K/mm3 (0.10-0.90); Neutrophils Absolute Auto 4.36 K/mm3 (1.70-7.20); Neutrophils Percent Auto 62.7 % (50.0-70.0); Platelet Count Result 261 K/mm3 (150-420); Red Blood Count 4.66 M/mm3 (4.20-5.40); Red Cell Distribution Width 12.5 % (11.6-14.4)
[2024-06-19 10:41] LABS: Erythrocyte Sedimentation Rate 15 mm/hr (0-15)
[2024-06-19 10:42] LABS: Alanine Aminotransferase 42 U/L (14-59); Albumin Level 3.6 g/dL (3.4-5.0); Alkaline Phosphatase 91 U/L (46-116); Anion Gap 10 mmol/L (4-12); Aspartate Amino Transferase 17 U/L (15-37); Bilirubin,Total 0.4 mg/dL (0.00-1.00); Blood Urea Nitrogen 9 mg/dL (7-18); CRP 0.7 mg/dL (0.0-0.9); Calcium 9.2 mg/dL (8.5-10.1); Carbon Dioxide 25 mmol/L (21-32); Chloride 103 mmol/L (98-108); Estimated Glomerular Filt Rate > 60; Folic Acid 10.8 ng/mL (8.6->20); Glucose 88 mg/dL (70-99); Osmolality Calculated 283 mOsm/kg (285-295); Potassium 4.2 mmol/L (3.5-5.1); Sodium 138 mmol/L (136-145); Thyroid Stimulating Hormone 1.19 uIU/mL (0.36-3.74); Total Protein 6.8 g/dL (6.4-8.2); Uric Acid 6.5 mg/dL (2.6-6.0); Vitamin B12 393 pg/mL (193-986)
[2024-06-19 10:45] LABS: Rheumatoid Factor Screen Negative (Negative)
[2024-06-22 05:08] LABS: Vitamin D 25 Hydroxy 22 ng/mL (30-100)
[2024-06-22 15:44] LABS: Lyme Disease Ab (IgM), Blot NEGATIVE (NEGATIVE); Lyme Disease Ab(IgG), Blot NEGATIVE (NEGATIVE)
--- OUTSIDE RECORDS SUMMARY | 2024-06-23 02:02 | XMS_ITS | Data Portability ---
Author Organization [facility] Address [address] [place] [address] Assessment Encounter Date Assessment Date Assessment LastModified by Organization Details LastModified Time 06/19/2020 06/19/2020 Annual gynecological exam performed. Patient will come back in a year unless there are new symptoms. [email or web address] Not available 06/16/2020 15:10:59 06/19/2020 06/19/2020 healthy female exam patient declines std testing pap done contraception-OC P refilled FU 1 year or prn [email or web address] Not available 06/19/2020 14:22:17 Plan of Treatment Reminders Order Date Submit Date Provider Last Modified By Organization Details Last Modified Time Details Appointments None recorded. Lab None recorded. Referral None recorded. Procedures None recorded. Surgeries None recorded. Imaging None recorded. Medication Orders Sprintec (28) 0.25 mg-35 mcg tablet 2019 020 [facility], [address], [place], [id number], 4 17:41:08 Sprintec (28) 0.25 mg-35 mcg tablet 2019 020 [facility], [address], [place], [id number], 4 17:41:08 Bactrim DS 800 mg-160 mg tablet 2023 024 [email or web address] [facility], [address], [place], [id number], 4 09:08:04 Patient TargetsNo targets recorded. Patient InstructionsNo instructions recorded. Reason for Referral None Reported. Results Created Date Observation Date Name Description Value Unit Range Abnormal Flag Note LastModifiedBy Organization Detail LastModifiedTime 11/22/19 20 11/24/2019 strep tococ cus group B DNA GB specimen source Vagina l/Rect al Not Available [facility] ([facility]) [address], [place], [address], 11/26/2019 09:06:07 11/22/19 20 11/24/2019 strep tococ cus group B DNA spec type Cultur e Swab Not Available [facility] ([facility]) [address], [place], [address], 11/26/2019 09:06:07 11/22/1911/24/2019 strep tococ cus group B DNA group B strep by PCR DETECT ED not detect ed abnormal Inter preta tion: A posit chuck resul t indic ates the detec tion of Group B Strep tococ cus DNA but not neces saril y the prese nce of viabl e organ isms; it is presu mptiv e for the prese nce of Group B Strep tococ cus. A negat chuck resul t does not exclu de the possi bilit y of infec tion since very low level s of micro organ ism or sampl ing error may cause a false negat chuck resul t. This assay is highl y accur ate, but rare false posit chuck and false negat chuck resul ts may occur . Metho dolog y: This resul t was deter mined using the FDA-c leare d BD Max GBS Assay . The BD Max GBS Assay is a quali tativ e in vitro diagn ostic test for the rapid detec tion of Group B Strep tococ cus (GBS) DNA in vagin al/re ctal speci mens from prepa rtum or intra partu m women utili zing real- time PCR. Perfo rmed by [facility], d/b/a [facility], [address], [place] [address] , Joey Youssef ra, DO, [facility] tor. Not Available [facility] ([facility]) [address] [place] [address] [address], [place], [address], 11/26/2019 09:06:07 11/22/19 20 11/26/2019 strep tococ cus group B, cultu re, unspe cifie d speci men specimen source Not Available [facility]) [address], [place], [address], 11/26/2019 09:06:08 11/22/19 20 11/26/2019 strep tococ cus group B, cultu re, unspe cifie d speci men culture, group B strep reflexed by PCR See Below Group B Strep detec chris by PCR but unabl e to isola te from cultu re to perfo rm reque sted sensi tivit y Not Available [facility] ([facility]) [address] [place] [address] [address], [place], [address], 11/26/2019 09:06:08 12/07/19 20 12/07/2019 US, obste tric, limit ed interpretati on Not Available [facility] [address], [place], [address], 12/06/2019 11:45:16 06/19/20 20 06/20/2020 pap, LB Pap test thin prep NEGATI VE FOR INTRAE PITHEL IAL LESION OR MALIGN ALLA normal ACCES ROMMEL #: 20-PS [id number] Sour e: Cervi garry/E ndoce rvica l LMP: 2019 Date Taken : 06/19 Speci men Type: ThinP rep Vial Date Repor chris: 06/20 Clini garry Data: Cytot ech: Leatha Blanco , CT( CP) Date Repor chris: 06/20 Speci men Adequ acy: Satis facto ry for evalu ation Endoc ervic al/tr ansfo rmati on zone compo nent prese nt Gener al Categ oriza tion: NEGAT CHUCK FOR INTRA EPITH ELIAL ADELSO N OR DAVYWIL HOOD This speci men has been yola zed by the ThinP rep Imagi ng Syste m, an inter activ e compu ter syste m which pool ts the lab in the [place] of ThinP rep Pap Test slide s. Follo wing imagi ng, the slide was revie wed by a Cytot echno logis t and/o r Patho logis t. D N A A S S A Y S R E P O R T TEST NAME RESUL TS ----- ---- ----- -- HPV High Risk Zhang mendoza (TMA) ThinP rep Vial The human papil lomav irus (HPV) High Risk Zhang mendoza is an FDA-a pprov ed in-vi tro ampli fied nucle ic acid test for the quali tativ e detec tion of E6/E7 viral mRNA. Resul ts shoul d be corre lated with patie nt prese ntati on, histo ry, cervi garry cytol ogy and other clini garry and labor atory findi ngs. See https ://[employer]/s ites/ defaron lt/fi les/2 018-0 3/AW- 56218 _002_ 01.pd f for furth er infor narinder n. Test perfo rmed by [facility], d/b/a [facility], [address], [facility] [place] [address] , Joey Youssef ra, DO, Labor atory [facility] tor. HPV High Risk *HPV NOT DETEC CHRIS (TYPE S 16, 18, 31, 33, 35, 39, 45, 51, 52, 56, 58, 59, 66, 68) *HPV: The human papil lomav irus (HPV) High Risk Zhang mendoza is an FDA-a pprov ed in-vi tro ampli fied nucle ic acid test for the quali tativ e detec tion of E6/E7 viral mRNA. [facility] ts shoul d be corre lated with patie nt prese ntati on, histo ry, cervi garry cytol ogy and other clini garry and labor atory findi ngs. See https ://[employer]/s ites/ defau lt/fi les/2 018-0 3/AW- 76399 _002_ 01.pd f for furth er infor mattoño n. Test perfo rmed by [facility] [employer], d/b/a [facility], [address], [place] [address] , Joey Youssef ra, DO, [facility] [employer] Dire tor. End of t Techn ical servi melvi provi ded by [facility] [employer], d/b/a [facility] [employer], [address] [place] [address] Kg Lynch MD, [facility] [employer] Dire tor. Case revie wed and diagn osis rende red at [facility] [employer], d/b/a [facility], [address] [place] [address] Kg Lynch MD, [facility] [employer] [facility]. CONFI DENTI AL Not Available [facility] ([facility]) [address], [place], [address], 06/20/2020 16:39:13 06/19/20 20 06/20/2020 HPV DNA, high- risk HPV high risk NOT DETECT ED normal Not Available [facility] ([facility]) [address], [place], [address], 06/20/2020 16:39:13 08/15/19 21 08/15/2020 US, tyshawn wright w-papito santiago interpretati on Not Available [facility] [address], [place], [address], 11/30/2019 16:12:11 08/16/19 21 08/16/2020 US, roxana casper follo w-up interpretati on Not Available [facility] [address], [place], [address], 11/22/2019 09:55:09 08/18/19 21 08/18/2020 US, roxana casper, limit ed interpretati on Not Available [facility] [address], [place], [address], 12/13/2019 09:43:31 11/22/19 US, obste tric, follo w-up No observ ation record ed. [email or web address] [address], [place], [address], 11/23/2019 12:52:06 11/30/19 US, obste tric, follo w-up No observ ation record ed. [email or web address] [address], [place], [address], 12/01/2019 11:01:03 12/06/19 , obste tric, limit ed No observ ation record ed. [email or web address] [address], [place], [address], 12/07/2019 13:21:24 12/13/19 US, obste tric, limit ed No observ ation record ed. [email or web address] [address], [place], [address], 12/15/2019 06:51:12 Result Notes None recorded. Problems Name Problem SNOMED Code Status Onset Date Resolution Date Notes Provider Name and Address Organization Details Recorded Time Polyhydr amnios 23536932 Completed weekly filipe Lee Ann kang [facility] 0 16:24:11 Pregnanc y 56325110 Completed 201901/13/2020 Hira Heredia MD [address], [place], [address], [place] [facility] 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 ) w/o abn findings ;Recorde d Elsewher e: No Locat ion: [facility] S ource: EHR Zipper Setter Chainstitch gage: N Practi ce ID: 0001 Fred lable Time: 09:30:00 AM Not Available [facility] 0 21:23:41 Educatio n Active 2010 Other general counseli ng and advice on contrace ptive manageme nt;Pract ice ID: 0001 Not Available [facility] 0 21:23:41 Pregnanc y test negative 530209283 Active 2010 Negative Pregnanc y Test;Pra ctice ID: 0001 Not Available [facility] 0 21:23:41 Speciali zed medical examinat ion Active 2012 Routine gynecolo gical examinat ion;Prac ronnie ID: 0001 Not Available [facility] 0 21:23:41 Adult health examinat ion Active 2013 Routine general medical examinat ion at a health care facility ;Practic e ID: 0001 Not Available [facility] 0 21:23:42 Amenorrh ea 86216608 Active 2014 AMENORRH EA;Pract ice ID: 0001 Not Available [facility] 0 21:23:42 Primigra kika 499232142 Active 2014 Supervis ion of normal first pregnanc y;Practi ce ID: 0001 Not Available [facility] 0 21:23:42 Pregnanc y test positive 594179849 Active 2014 Positive Pregnanc y Test;Pra ctice ID: 0001 Not Available [facility] 0 21:23:42 Speciali zed medical examinat ion Active 2014 Other specifie d chlamydi al diseases ;Practic e ID: 0001 Not Available [facility] 0 21:23:42 Venereal disease screenin g Active 2014 Screenin g examinat ion for venereal disease; Practice ID: 0001 Not Available [facility] 0 21:23:42 Ultrason ography Active 2014 Antenata l screenin g for malforma tion using ultrason ics;Prac ronnie ID: 0001 Not Available [facility] 0 21:23:42 Antenata l screenin g Active 2014 Antenata l screenin g for malforma tion using ultrason ics;Prac ronnie ID: 0001 Not Available [facility] 0 21:23:42 Congenit al malforma tion 891396471 Active 2014 Antenata l screenin g for malforma tion using ultrason ics;Prac ronnie ID: 0001 Not Available [facility] 0 21:23:42 Threaten ed miscarri age 61786258 Active 2014 THREATEN ABORT-AN TEPART;P ractice ID: 0001 Not Available [facility] 0 21:23:43 Low back pain 341284698 Active 2014 Lumbago; Practice ID: 0001 Not Available [facility] 0 21:23:43 Pregnanc y, childbir th and puerperi um finding Active 2014 Encntr for suprvsn of normal first preg, third trimeste r;Practi ce ID: 0001 Not Available [facility] 0 21:23:43 Normal pregnanc y in multigra kika 9581414475 34688 Active 2014 Encounte r for suprvsn of normal pregnanc y, third trimeste r;Practi ce ID: 0001 Not Available [facility] 0 21:23:44 Term pregnanc y delivere d 99988529 Active 2014 Encounte r for full-ter m uncompli cated delivery ;Practic e ID: 0001 Not Available [facility] 0 21:23:44 Single live 365606827 Active 2014 Single live ;Pr actice ID: 0001 Not Available [facility] 0 21:23:44 Lochia finding Active 2014 Encounte r for routine postpart um follow-u p;Practi ce ID: 0001 Not Available [facility] 0 21:23:[address] Concept Active 2015 Encntr for general adult medical exam w/o abnormal findings ;Practic e ID: 0001 Not Available [facility] 0 21:23:45 Pregnanc y detectio n examinat ion Active 2018 Encounte r for pregnanc y test, result positive ;Practic e ID: 0001 Not Available [facility] 0 21:23:45 Hemorrha gic complica tion of pregnanc y 162688898 Active 2018 Other hemorrha ge in early pregnanc y;Practi ce ID: 0001 Not Available [facility] 0 21:23:45 Gestatio n period, 9 weeks 895138 Active 2018 9 weeks gestatio n of pregnanc y;Practi ce ID: 0001 Not Available [facility] 0 21:23:45 Rubella screenin g status 241324871 Active 2018 Encounte r for antenata l screenin g, unspecif ied;Prac ronnie ID: 0001 Not Available [facility] 0 21:23:46 Screenin g for malignan t neoplasm of cervix Active 2014 Screenin g for malignan t neoplasm s of the cervix;R ecorded Elsewher e: No Locat ion: [facility] S ource: EHR Zipper Setter Chainstitch gage: N Practi ce ID: 0001 Fred lable Time: 03:30:00 PM Not Available [facility] 0 21:23:47 anatomy study Active [facility];R ecorded Elsewher e: No Locat ion: [facility] S ource: EHR Zipper Setter Chainstitch gage: N Practi ce ID: 0001 Fred lable Time: 02:00:00 PM Not Available [facility] 0 21:23:48 Gestatio n period, 27 weeks 53593692 Active 2019 27 weeks gestatio n of pregnanc y;Record ed Elsewher e: No Locat ion: [facility] S ource: EHR Zipper Setter Chainstitch gage: N Siddharthati ce ID: 0001 Fred lable Time: 03:04:40 PM Not Available [facility] 0 21:23:50 Gestatio n period, 24 weeks 363847170 Active 2019 24 weeks gestatio n of pregnanc y;Record ed Elsewher e: No Locat ion: [facility] S ource: EHR Zipper Setter Chainstitch gage: N Practi ce ID: 0001 Fred lable Time: 05:00:00 PM Not Available [facility] 0 21:23:50 Antenata l screenin g for malforma tion Active 2019 Encounte r for antenata l screenin g for malforma tions;Re corded Elsewher e: No Locat ion: [facility] S ource: EHR Zipper Setter Chainstitch gage: N Siddharthati ce ID: 0001 Fred lable Time: 01:00:00 PM Not Available [facility] 0 21:23:51 Developm ental disorder Active 2019 Malforma tion of placenta , unspecif ied, second trimeste r;Record ed Elsewher e: No Locat ion: [facility] S ource: EHR Zipper Setter Chainstitch gage: N Siddharthati ce ID: 0001 Fred lable Time: 03:04:40 PM Not Available [facility] 0 21:23:51 Problem Notes None recorded. Procedures Surgical History Date Name Laterality Status Provider Name and Address Organization Details Recorded Time 0 hernia repair completed Camila [facility] 08/28/2023 17:45:33 4 tonsillectomy completed Camila [facility] 08/28/2023 17:45:52 Imaging Results Imaging Date Name Status LastModified by Organiz [facility] Details LastModified Time 11/22/2019 US, obstetric, follow-up completed [email or web address] [address], [place], [address], 11/23/2019 12:52:06 11/30/2019 US, obstetric, follow-up completed [email or web address] [address], [place], [address], 12/01/2019 11:01:03 12/06/2019 US, obstetric, limited completed [email or web address] [address], [place], [address], 12/07/2019 13:21:24 12/13/2019 US, obstetric, limited completed [email or web address] [address], [place], [address], 12/15/2019 06:51:12 Procedure Notes None recorded. Medical Equipment None Reported. Allergies Allergen ID Allergen Name Allergen Category Reaction Reaction Severity Criticality Documentation Date Start Date Code Code System Note Provider Name and Address Organization Details Recorded Time 255 codeine medicatio n Not available Not available Not available 10/25/[address] [facility] 0 09:04:41 Medications Name Sig Start Date Stop Date Status Note LastModified by Organization Details LastModified Time amoxicill in 500 mg capsule 08/28 completed Not Available Not Available Not Available clotrimaz ole 10 mg adeel 06/19 completed Not Available Not Available Not Available nystatin 100,000 unit/mL oral suspensio n 06/19 completed Not Available Not Available Not Available venlafaxi ne ER 75 mg capsule,e xtended release 24 hr 06/19 completed Not Available Not Available Not Available prednison e 20 mg tablet 08/28 completed Not Available Not Available Not Available propranol ol ER 60 mg capsule,2 4 hr,extend ed release active Not Available Not Available Not Available sertralin e 100 mg tablet active Not Available Not Available Not Available sumatript an 50 mg tablet 08/28 completed Not Available Not Available Not Available ciproflox acin 250 mg tablet 08/28 completed Not Available Not Available Not Available Zantac 150 mg tablet take 1 tablet (150MG) by oral route 2 times every day 04/22 completed Prescrib ed Elsewher e: Yes Loca tion: [facility] odify By: [email or web address] trick En counter DateTime : 06/11/20 11 10:00:00 AM Not Available Not Available Not Available amoxicill in 875 mg tablet 08/28 completed Not Available Not Available Not Available doxycycli ne monohydra te 100 mg capsule 08/28 completed Not Available Not Available Not Available oseltamiv ir 75 mg capsule 06/19 completed Not Available Not Available Not Available omeprazol e 20 mg capsule,d elayed release active Not Available Not Available Not Available methylpre dnisolone 4 mg tablets in a dose pack Take as directed 08/28 completed Not Available Not Available Not Available albuterol sulfate HFA 90 mcg/actua tion aerosol inhaler 08/28 completed Not Available Not Available Not Available Vitamin D2 1,250 mcg (50,000 unit) capsule take 1 capsule by oral route every week 07/05 completed Prescrib ed Elsewher e: No Locat ion: [facility] odify By: [email or web address] trick En counter DateTime : 12/03/19 15 11:39:54 AM Not Available Not Available Not Available propranol ol 20 mg tablet active Not Available Not Available Not Available sertralin e 50 mg tablet TAKE ONE TABLET BY MOUTH DAILY 06/19 completed Not Available Not Available Not Available medroxypr ogesteron e 150 mg/mL intramusc ular suspensio n last injectio n active Not Available Not Available No t Available naproxen 500 mg tablet 08/28 completed Not Available Not Available Not Available amoxicill in 875 mg-potass ium clavulana te 125 mg tablet 08/28 completed Not Available Not Available Not Available Bactrim DS 800 mg-160 mg tablet Take 1 tablet every 12 hours by oral route with meal(s) for 5 days. 2023 active Not Available Not Available Not Avai lable Depo-Prov era 150 mg/mL intramusc ular syringe inject 1 millilit er (150MG) by intramus cular route every 3 months 04/22 completed Prescrib ed Elsewher e: No Locat ion: [facility] odify By: [email or web address] trick En counter DateTime : 06/11/20 11 10:00:00 AM Not Available Not Available Not Available nitrofura ntoin monohydra te/macroc rystals 100 mg capsule 08/28 completed Not Available Not Available Not Available sertralin e 11/29 completed Not Available Not Available Not Available 06/19 completed Not Available Not Available Not Available Tri-Linya h (28) 0.18 mg(7)/0.2 15 mg(7)/0.2 5 mg(7)-35 mcg tablet 06/19 completed Not Available Not Available Not Available Estarylla 0.25 mg-35 mcg tablet TAKE ONE TABLET BY MOUTH DAILY 08/28 completed Not Available Not Available Not Available Fioricet 50 mg-300 mg-40 mg capsule take 1 - 2 capsule by oral route every 4 hours as needed not to exceed 6 capsules per 24hrs 07/05 completed Prescrib ed Elsewher e: No Locat ion: [facility] odify By: [email or web address] trick En counter DateTime : 12/21/19 15 09:04:31 AM Not Available Not Available Not Available 28 mg-800 mcg tablet 08/28 completed Prescrib ed Elsewher e: Yes Loca tion: [facility] odify By: [email or web address] Encount er DateTime : 06/11/20 19 11:15:00 AM Not Available Not Available Not Available Vitals Date Recorded Body height Body mass index (BMI) Systolic blood pressure Diastolic blood pressure Provider Name and Address Organization Details Last Updated DateTime 01/13/2020 165.1 cm 25.1 kg/m2 122 mm[Hg] 73 mm[Hg] Alanna Guillen [facility] 01/13/2020 12:33:10 Date Recorded Body weight Provider Name an d Address Organization Details Last Updated DateTime 01/13/2020 69513.58676 g Hira Heredia MD [address], [place], [address], [facility] 01/13/2020 13:12:28 Date Recorded Body height Body mass index (BMI) Body weight Systolic blood pressure Diastolic blood pressure Provider Name and Address Organization Details Last Updated DateTime 08/28/2023 165.1 cm 31.8 kg/m2 11599.14 g 143 mm[Hg] 82 mm[Hg] Camila Kg [facility] 17:40:37 Date Recorded Body height Provider Name an d Address Organization Details Last Updated DateTime 06/19/2020 165.1 cm Dayna Panda [facility] 06/16/2020 15:11:27 Date Recorded Body height Body mass index (BMI) Systolic blood pressure Diastolic blood pressure Provider Name and Address Organization Details Last Updated DateTime 06/19/2020 165.1 cm 26.6 kg/m2 137 mm[Hg] 85 mm[Hg] Breanna Tate [facility] 06/19/2020 12:49:53 Date Recorded Body weight Provider Name an d Address Organization Details Last Updated DateTime 06/19/2020 68124.7792 g Lee Ann Lanza [facility] 06/21/2020 16:24:12 Social History Question Answer Notes LastModified by Organizat ion Details LastModified Time Tobacco Smoking Status Never Smoker Gwen Abel MD [address], [place], [address], [facility] 06/19/2020 14:16:32 What Is Your Level Of Alcohol Consumption? Occasional Information not available 08/28/2023 Are You Blind Or Do You Have Difficulty Seeing? No Information not available 08/28/2023 What Is Your Level Of Caffeine Consumption? Heavy Information not available 08/28/2023 How Much Tobacco Do You Chew? None Information not available 08/28/2023 In The 14 Days Before Symptom Onset, Have You Had Close Contact With A Laboratory-confir med COVID-19 While That Case Was Ill? No Information not available 08/28/2023 In The 14 Days Before Symptom Onset, Have You Had Close Contact With A Person Who Is Under Investigation For COVID-19 While That Person Was Ill? No Information not available 08/28/2023 Have You Been To An Area Known To Be High Risk For COVID-19? No Information not available 08/28/2023 Are You Deaf Or Do You Have Serious Difficulty Hearing? No Information not available 08/28/2023 What Type Of Diet Are You Following? REGULAR Information not available 08/28/2023 What Is The Highest Grade Or Level Of School You Have Completed Or The Highest Degree You Have Received? 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 No Information not available 08/28/2023 Do You Use Protection During Sex? Usually Information not available 08/28/2023 Do You Use Your Seat Belt Or Car Seat Routinely? Yes Information not available 08/28/2023 Do You Have Smoke And Carbon Monoxide Detectors In Your Home? Yes Information not available 08/28/2023 How Much Tobacco Do You Smoke? No Information not available 08/28/2023 Do You Feel Stressed (tense, Restless, Nervous, Or Anxious, Or Unable To Sleep At Night)? [id number] Information not available 08/28/2023 Do You Use Any Illicit Or Recreational Drugs? No Information not available 08/28/2023 Do You Use Sunscreen Routinely? No Information not available 08/28/2023 Have You Used IV Drugs? No Information not available 08/28/2023 Sex: Unknown Functional Status Question Answer Note LastModified by Organization D etails LastModified Time Are you able to walk? YESWOREST Information not available 08/28/2023 What is your exercise level? None Information not available 08/28/2023 Mental Status None recorded. Family History Relationship Description Onset Age of this Age Resolved Age Notes LastModified by Organization Details LastModified Time Father No current problems or disability ramesh l Not available 11/30/2019 02:46:33 Mother No current problems or disability cledanau l Not available 11/30/2019 02:46:33 Medical History Condition Response Allergies (Food, seasonal, environmental ) N Other N Drug/Latex Allergies/Reactions N Blood Transfusion N Breast Cancer N Dermatologic Disorders N Lung Disease N Defects or Inherited Disease N Breast Problem N Gestational Diabetes N Hematologic disorders N Anesthesia Complications N History of STI N Deep Vein Thrombosis N Polycystic ovary syndrome N Anxiety Disorder Y Autoimmune disease N Arthritis N Polyps N Infertility N Acid Reflux (GERD) N History of abnormal pap N Cancer N Varicosities N Stroke N Neurologic/Epilepsy N Endometriosis N High Cholesterol N Fibromyalgia N Headaches N Kidney Disease N Heart Problems N Thyroid Problems N Kidney or Bladder Problems N GI Problems N Eating Disorder N Anemia N Art (IVF or FET) N Psychiatric Illness N Ovarian Cancer N Diabetes N Pulmonary (TB, Asthma) N Hepatitis/Liver Disease N Eczema N Urinary Tract Infection N Abuse/Domestic Violence N Asthma N Trauma/Violence N Depression/ depression Y Heart Disease N Pre-Eclampsia N Hypertension N Osteoporosis N Thrombophilias N Gynecological History Statement/Question Response Abnormal Pap N Sexually Active? Y STIs/STDs N Menses Monthly N Age of first menstrual cycle 11 HPV Vaccine Y Date of Last Pap Smear Sexual Problems? 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 Obstetrics History GPAL:G 2 P 2 0 0 2 Type Value Full Term 2 Living 2 Total 2 Past Encounters Encounter ID Performer Location Encounter Start Date Encounter Closed Date Diagnosis/Indication Diagnosis SNOMED-CT Code Diagnosis ICD10 Code [id number] Liliane Collins [facility] [address] [place] [address] 10/25/2019 10:29:58 10/25/2019 17:23:25 Abnormal placenta affecting management of mother 76481872 O43.[id number] [facility] [address] [place] [address] 10/25/2019 10:35:31 10/25/2019 11:31:17 Normal [id number] Z34.93 [id number] [facility] [address] [place] [address] 11/11/2019 11:21:24 11/11/2019 11:49:09 Normal [id number] Z34.93 [id number] Magy Eric [facility] [address] [address] 11/22/2019 09:21:11 11/22/2019 11:56:20 Normal [id number] Z34.93 [id number] Liliane Collins [facility] [address] [address] 11/22/2019 09:21:48 11/22/2019 11:44:28 AND/OR placental disorder affecting management of mother 56203174 O43.93 O36.63X0 Z3A.36 [id number] Fannie Warren [facility] [address] [address] 11/30/2019 15:25:33 11/30/2019 16:19:44 AND/OR placental disorder affecting management of mother 64264195 O43.93 O36.63X0 O40.3XX0 Z3A.37 [id number] Hira Heredia MD [facility] [address] [address] 11/30/2019 15:26:06 12/02/2019 11:12:20 Normal [id number] Z34.93 [id number] [facility] [address] [address] 06/11/2019 00:00:00 [id number] [facility] [address] [address] 07/09/2019 00:00:00 [id number] [facility] [address] [address] 08/06/2019 00:00:00 [id number] [address] [address] 09/02/2019 00:00:00 [id number] [facility] [address] [address] 09/27/2019 00:00:00 [id number] [address] [address] 10/11/2019 00:00:[id number] [facility] [address] [address] 12/06/2019 10:49:04 12/06/2019 11:28:46 Normal [id number] Z34.93 [id number] Liliane Collins [facility] [address] [address] 12/06/2019 10:50:03 12/06/2019 12:11:39 Polyhydramnios [id number] O40.3XX3 Z3A.37 [id number] Fannie Warren [facility] [address] [address] 12/13/2019 09:27:45 12/13/2019 18:07:46 Transverse lie [id number] O32.2XX9 Z3A.38 [id number] [facility] [address] [address] 12/13/2019 09:28:17 12/13/2019 18:11:32 Normal [id number] Z34.93 [id number] Hira Heredia MD [facility] [address] [address] 12/17/2019 12:00:36 12/17/2019 12:01:48 [id number] Hira Heredia MD [facility] [address] [address] 01/13/2020 12:10:22 01/13/2020 14:57:32 Gestational diabetes mellitus class A1 50686368 O24.410 care [id number] Z39.2 [id number] Sandy Luis Asaba [facility] [address] [address] 06/19/2020 12:40:44 06/22/2020 16:21:00 [id number] Gwen Abel MD [facility] [address] [address] 06/19/2020 12:48:04 06/19/2020 14:33:34 Surveillance of oral contraception 106750353 Z30.41 Gynecologi c examination 02791537 Z01.419 Screening for malignant neoplasm of cervix 741471355 Z12.4 [id number] [facility] [address] [address] 08/28/2023 17:32:18 09/03/2023 09:21:41 Labial cyst [id number] N90.7 Health Concerns Section Related Observation LastModified by Organization Detai ls LastModified Time None Recorded Concern Status LastModified by Organization Details LastModified Time None Recorded Advance Directives Directive None Recorded Payers Encounter Date Sequence Insurance Name Policy Number Policy Benitez Covered Member ID Benitez Member ID Guarantor Name 12/16/2019 1 [facility] PRIOR TO 01/04/2021 (MEDICAID REPLACEMENT - HMO) Meredith Lyerla [id number] Meredith Lyerla 01/13/2020 1 [facility] PRIOR TO 01/04/2021 (MEDICAID REPLACEMENT - HMO) Meredith Lyerla [id number] Meredith Lyerla 06/19/2020 1 [facility] PRIOR TO 01/04/2021 (MEDICAID REPLACEMENT - HMO) Meredith Lyerla [id number] Meredith Lyerla 06/19/2020 1 [facility] PRIOR TO 01/04/2021 (MEDICAID REPLACEMENT - HMO) Meredith Lyerla [id number] Meredith Lyerla 08/28/2023 1 [facility] ON OR AFTER 01/04/21 (MEDICAID REPLACEMENT - HMO) Meredith Lyerla [id number] Meredith Lyerla Notes Date Note Type Note Provider Name and Address Organization Details Recorded Time 0 text/html VisitReported bypatient.Onset/Timing :date of delivery: (12/14/2019) Quality: Context:complications of : none; complications of labor: none Associated Symptoms:no abnormal bleeding; no vaginal discharge; no pelvic pain; no constipation; normal mood Contraception Plan:oral contraceptive pill Hira Heredia MD [address], [place], [address], [facility] 01/13/2020 13:15:29 0 text/html Patient is a 25yo who presents for an annual exam. No concerns. DOing well on estarylla. last pap-v2017 sexually active-yes contraception-OCP seatbelts-yes exercise-no, encouraged depression-denies domestic violence-denies tobacco-no concerns-no Gwen Abel MD [address], [place], [address], [facility] 06/19/2020 14:24:26 4 text/html Here today to discuss recent labial cyst that has been present x 1wk.Noticed a bump a week ago.Uncertain if ingrown hair from grooming or other issue.Warden concerned at that time.Little to no drainageTenderGot bigger-marble size.But now decreasing in size and not as tender to touch.Wanted to still come to office to be evaluated to ensure no other therapies should be initiated. Neg pain of abd/pelvis/flankNeg urinary sx'sNeg GI sx'sNeg N/V/F/C/DNeg Vag d/c, odor, irritation, itchingmonogamous Mona Carson [facility]- [address], [place], [address], [facility] 09/03/2023 09:14:20 OBGyn Episode Ob Episode Information Episode Created Date Number of Fetuses Patient Bloodtype Patient rh Status Prepregnancy Weight lbs Domestic Partner Domestic Partner Phone Father Name Sign Erector And Repairer Status 10/25/19 20 1 CLOSED Fetus Data First Name Last Name Admitted to NICU Weight (g) Sex Living Outcome Pediatric Complications Fetus ID Race Codes Race Delivery Type 625 Vaginal Delivery Lela Calculation LELA Calculation Method Initial Lela Date Initial Exam Date Initial Exam Provider Initial Ultrasound Date Last Menstrual Period Date Ultra Sound Weeks Gestation Conception by IVF Embryo Age at Transfer Date of Transfer 0 Eighteen To Twenty Week Lela Update Ultra Sound Date Fundal Height At Umbil Quickening Date Ultra Sound Latest Weeks Gestation Final Lela Confirmed By Final Lela Confirmed Date Final Lela Date Ultra Sound Latest Days Gestation 0 0 Menstrual History Last Menstrual Date Menses Monthly On Bcp Conception Prior Menses Frequency Hcg Plus Date Menarche Onset Age Delivery Information Delivery Date Delivery Type Labor Anesthesia Weeks Gestation Incision Type Labor Labor Length Hrs Delivered By Post Complications Tubal Sterilization Discharge Date Comments 5 Discharge Information Feeding Method Contraceptive Method Maternal HG B and HCT Levels Ob Episode Information Episode Created Date Number of Fetuses Patient Bloodtype Patient rh Status Prepregnancy Weight lbs Domestic Partner Domestic Partner Phone Father Name Sign Erector And Repairer Status 10/25/19 20 1 A Negative 155 CLOSED Fetus Data First Name Last Name Admitted to NICU Weight (g) Sex Living Outcome Pediatric Complications Fetus ID Race Codes Race Delivery Type 4053.97 85 M true Full Term thin mec fluid 626 Vaginal Delivery Problems Problem Notes macrosomia Problem Name Start Date End Date Resolution Snomed Code Not e Anomaly of placenta [id number] bilobed placenta Polyhydramnios [id number] weekl y filipe Lela Calculation LELA Calculation Method Initial Lela Date Initial Exam Date Initial Exam Provider Initial Ultrasound Date Last Menstrual Period Date Ultra Sound Weeks Gestation Conception by IVF Embryo Age at Transfer Date of Transfer 12/21/1910/25/1905/18/2019 03/16/2019 8 Eighteen To Twenty Week Lela Update Ultra Sound Date Fundal Height At Umbil Quickening Date Ultra Sound Latest Weeks Gestation Final Lela Confirmed By Final Lela Confirmed Date Final Lela Date Ultra Sound Latest Days Gestation 0 [email or web address] 11/19/2019 12/21/19 20 0 Pre-anderson Flowsheet Flowsheet Date 10/25/2019 David Score Blood Edema Fundus Height Fundus Units Glucose Ketones Leukocytes Nitrite Labor Signs Protein Cervic Dilation Cervic Effacement Cervic Station Type Weight in lbs Pre/Post Dialysis Refused BP Diastolic BP Location Tested BP Systolic BP Type Fetus Heart Rate Present Fetus Movement Comments Flowsheet Date 10/25/2019 David Score Blood Edema Fundus Height Fundus Units Glucose Ketones Leukocytes Nitrite Labor Signs Protein Cervic Dilation Cervic Effacement Cervic Station none 35 cm trace 0cm 0% -3 Type Weight in lbs Pre/Post Dialysis Refused Weight 165.229912628162 BP Diastolic BP Location Tested BP Systolic BP Type 77 R arm 118 sitting Fetus Heart Rate Present A 145 Fetus Movement A Yes Comments Glucose negative. bc, rma Fr equent ctx. Cervic closed/thick/high. She has been off work due to mother (who watches her child) having COVID. Not given to remain off work due to contractions. We discussed large fetus and recommendation to schedule C/S without labor only if EFW 11 lbs or higher. Prior weighed 7#13 oz at 41 weeks. We'll recheck EFW Q3-4 weeks until delivery Flowsheet Date 11/11/2019 David Score Blood Edema Fundus Height Fundus Units Glucose Ketones Leukocytes Nitrite Labor Signs Protein Cervic Dilation Cervic Effacement Cervic Station none 34 cm trace 0cm 0% -3 Type Weight in lbs Pre/Post Dialysis Refused Weight 169.370738808395 BP Diastolic BP Location Tested BP Systolic BP Type 72 R arm 113 sitting Fetus Heart Rate Present A 145 Fetus Movement A Yes Comments Glucose negative. bc, rma St ill frequent contractions but cervix closed/thick/-3/ballotable. Her mother has recovered from COVD. GBS next visit. Reviewed labor precautions Flowsheet Date 11/22/2019 David Score Blood Edema Fundus Height Fundus Units Glucose Ketones Leukocytes Nitrite Labor Signs Protein Cervic Dilation Cervic Effacement Cervic Station Type Weight in lbs Pre/Post Dialysis Refused BP Diastolic BP Location Tested BP Systolic BP Type Fetus Heart Rate Present Fetus Movement Comments Flowsheet Date 11/22/2019 David Score Blood Edema Fundus Height Fundus Units Glucose Ketones Leukocytes Nitrite Labor Signs Protein Cervic Dilation Cervic Effacement Cervic Station none 40 cm trace 0cm 0% -3 Type Weight in lbs Pre/Post Dialysis Refused Weight 171.562010680820 BP Diastolic BP Location Tested BP Systolic BP Type 79 R arm 134 sitting Fetus Heart Rate Present A 145 Fetus Movement A Yes Comments Glucose negative. bc, rma GB S done. Transverse lie on U/S. Repeat U/S in 1 week (at 36+6+, if still not cephalic she'll want to try version at 37 weeks. EFW 7#7oz (95%tile) today. Cervix FT/thick/high. Labor precautions reviewed Flowsheet Date 11/30/2019 David Score Blood Edema Fundus Height Fundus Units Glucose Ketones Leukocytes Nitrite Labor Signs Protein Cervic Dilation Cervic Effacement Cervic Station Type Weight in lbs Pre/Post Dialysis Refused BP Diastolic BP Location Tested BP Systolic BP Type Fetus Heart Rate Present Fetus Movement Comments Flowsheet Date 11/30/2019 David Score Blood Edema Fundus Height Fundus Units Glucose Ketones Leukocytes Nitrite Labor Signs Protein Cervic Dilation Cervic Effacement Cervic Station none 39 cm 1cm 0% -3 Type Weight in lbs Pre/Post Dialysis Refused Weight 172.646654677120 BP Diastolic BP Location Tested BP Systolic BP Type 76 R arm 120 sitting Fetus Heart Rate Present A 128 Fetus Movement A Yes Comments Vertex on U/S today! Mild po ly FILIPE 25.8 cm so repeat FILIPE next week. Cervix tight 1/thick/-3/posterior. Labor precautions reviewed Flowsheet Date 06/11/2019 David Score Blood Edema Fundus Height Fundus Units Glucose Ketones Leukocytes Nitrite Labor Signs Protein Cervic Dilation Cervic Effacement Cervic Station none 12 trace Type Weight in lbs Pre/Post Dialysis Refused Weight 113.384552998008 BP Diastolic BP Location Tested BP Systolic BP Type 79 112 sitting Fetus Heart Rate Present A 161 Fetus Movement A No Comments at 12+3 by sure LMP= 8 week U/S. N/V improving. Anxiety/depression controlled on Zoloft. Flu vaccine advised. Add iron supplement since taking gummy PNV Flowsheet Date 07/09/2019 David Score Blood Edema Fundus Height Fundus Units Glucose Ketones Leukocytes Nitrite Labor Signs Protein Cervic Dilation Cervic Effacement Cervic Station 16 trace Type Weight in lbs Pre/Post Dialysis Refused Weight 113.239220248223 BP Diastolic BP Location Tested BP Systolic BP Type 71 111 sitting Fetus Heart Rate Present A 154 Fetus Movement Comments OB [id number] pt states that [place] ving some side pelvic pain Flowsheet Date 08/06/2019 David Score Blood Edema Fundus Height Fundus Units Glucose Ketones Leukocytes Nitrite Labor Signs Protein Cervic Dilation Cervic Effacement Cervic Station trace 20 trace Type Weight in lbs Pre/Post Dialysis Refused Weight 113.250290554538 BP Diastolic BP Location Tested BP Systolic BP Type Fetus Heart Rate Present A 150 Fetus Movement A Yes Comments Flowsheet Date 09/02/2019 David Score Blood Edema Fundus Height Fundus Units Glucose Ketones Leukocytes Nitrite Labor Signs Protein Cervic Dilation Cervic Effacement Cervic Station none 26 trace Type Weight in lbs Pre/Post Dialysis Refused Weight 162.969466722055 BP Diastolic BP Location Tested BP Systolic BP Type 73 116 sitting Fetus Heart Rate Present A 140 Fetus Movement A Yes Comments No complaints. Order given t o do 28 week labs at [facility] in 4 weeks. Expecting baby boy, wants circumcision and plans to bottle feed Flowsheet Date 09/27/2019 David Score Blood Edema Fundus Height Fundus Units Glucose Ketones Leukocytes Nitrite Labor Signs Protein Cervic Dilation Cervic Effacement Cervic Station none 29 trace Type Weight in lbs Pre/Post Dialysis Refused Weight 166.664785929942 BP Diastolic BP Location Tested BP Systolic BP Type 73 123 sitting Fetus Heart Rate Present A 138 Fetus Movement A Yes Comments Pt is going to [facility] for 28 week labs and rhogam. Flowsheet Date 10/11/2019 David Score Blood Edema Fundus Height Fundus Units Glucose Ketones Leukocytes Nitrite Labor Signs Protein Cervic Dilation Cervic Effacement Cervic Station none 31 trace Type Weight in lbs Pre/Post Dialysis Refused Weight 165.307793316876 BP Diastolic BP Location Tested BP Systolic BP Type 72 109 sitting Fetus Heart Rate Present A 150 Fetus Movement A Yes Comments Occasional ctx (1-2 per hour at most). Declines cvx exam. I advised rest and fluids and to call if >4 ctx / hour. She expressed understanding +1 glucose Flowsheet Date 12/06/2019 David Score Blood Edema Fundus Height Fundus Units Glucose Ketones Leukocytes Nitrite Labor Signs Protein Cervic Dilation Cervic Effacement Cervic Station none 36 cm trace 1cm 0% -3 Type Weight in lbs Pre/Post Dialysis Refused Weight 174.88093821187 BP Diastolic BP Location Tested BP Systolic BP Type 81 R arm 119 sitting Fetus Heart Rate Present A 150 Fetus Movement A Yes Comments Glucose negative. bc, rma AF I was mildly elevated last week. Repeat FILIPE scheduled later today. She declines elective 39 week induction Flowsheet Date 12/06/2019 David Score Blood Edema Fundus Height Fundus Units Glucose Ketones Leukocytes Nitrite Labor Signs Protein Cervic Dilation Cervic Effacement Cervic Station Type Weight in lbs Pre/Post Dialysis Refused BP Diastolic BP Location Tested BP Systolic BP Type Fetus Heart Rate Present Fetus Movement Comments Flowsheet Date 12/13/2019 David Score Blood Edema Fundus Height Fundus Units Glucose Ketones Leukocytes Nitrite Labor Signs Protein Cervic Dilation Cervic Effacement Cervic Station Type Weight in lbs Pre/Post Dialysis Refused BP Diastolic BP Location Tested BP Systolic BP Type Fetus Heart Rate Present Fetus Movement Comments Flowsheet Date 12/13/2019 David Score Blood Edema Fundus Height Fundus Units Glucose Ketones Leukocytes Nitrite Labor Signs Protein Cervic Dilation Cervic Effacement Cervic Station trace 39 trace 1cm 20% -2 Type Weight in lbs Pre/Post Dialysis Refused Weight 174.19222187239 BP Diastolic BP Location Tested BP Systolic BP Type 85 R arm 121 sitting Fetus Heart Rate Present A 140 Fetus Movement A Yes Comments Glucose negative. bc, rma Ve rtex today so plan induction tomorrow! Cervix 1-2/soft/posterior Flowsheet Date 12/16/2019 David Score Blood Edema Fundus Height Fundus Units Glucose Ketones Leukocytes Nitrite Labor Signs Protein Cervic Dilation Cervic Effacement Cervic Station Type Weight in lbs Pre/Post Dialysis Refused BP Diastolic BP Location Tested BP Systolic BP Type Fetus Heart Rate Present Fetus Movement Comments Flowsheet Date 01/13/2020 David Score Blood Edema Fundus Height Fundus Units Glucose Ketones Leukocytes Nitrite Labor Signs Protein Cervic Dilation Cervic Effacement Cervic Station Type Weight in lbs Pre/Post Dialysis Refused Weight 151.754598057425 BP Diastolic BP Location Tested BP Systolic BP Type 73 122 Fetus Heart Rate Present Fetus Movement Comments Flowsheet Date 06/19/2020 David Score Blood Edema Fundus Height Fundus Units Glucose Ketones Leukocytes Nitrite Labor Signs Protein Cervic Dilation Cervic Effacement Cervic Station Type Weight in lbs Pre/Post Dialysis Refused Weight 160.515219370093 BP Diastolic BP Location Tested BP Systolic BP Type 85 137 Fetus Heart Rate Present Fetus Movement Comments Flowsheet Date 06/19/2020 David Score Blood Edema Fundus Height Fundus Units Glucose Ketones Leukocytes Nitrite Labor Signs Protein Cervic Dilation Cervic Effacement Cervic Station Type Weight in lbs Pre/Post Dialysis Refused BP Diastolic BP Location Tested BP Systolic BP Type Fetus Heart Rate Present Fetus Movement Comments Menstrual History Last Menstrual Date Menses Monthly On Bcp Conception Prior Menses Frequency Hcg Plus Date Menarche Onset Age 0903/16/2019 Delivery Information Delivery Date Delivery Type Labor Anesthesia Weeks Gestation Incision Type Labor Labor Length Hrs Delivered By Post Complications Tubal Sterilization Discharge Date Comments 0 Induce d Regional-Ep idural 39 false [email or web address] None Bilobed placenta/ polyhydra mnios/GBS + Discharge Information Feeding Method Contraceptive Method Maternal HG B and HCT Levels Bottle OCP's Ob Episode Information Episode Created Date Number of Fetuses Patient Bloodtype Patient rh Status Prepregnancy Weight lbs Domestic Partner Domestic Partner Phone Father Name Sign Erector And Repairer Status 12/22/19 20 1 DELETED Lela Calculation LELA Calculation Method Initial Lela Date Initial Exam Date Initial Exam Provider Initial Ultrasound Date Last Menstrual Period Date Ultra Sound Weeks Gestation Conception by IVF Embryo Age at Transfer Date of Transfer 0 Eighteen To Twenty Week Lela Update Ultra Sound Date Fundal Height At Umbil Quickening Date Ultra Sound Latest Weeks Gestation Final Lela Confirmed By Final Lela Confirmed Date Final Lela Date Ultra Sound Latest Days Gestation 0 0 Menstrual History Last Menstrual Date Menses Monthly On Bcp Conception Prior Menses Frequency Hcg Plus Date Menarche Onset Age Delivery Information Delivery Date Delivery Type Labor Anesthesia Weeks Gestation Incision Type Labor Labor Length Hrs Delivered By Post Complications Tubal Sterilization Discharge Date Comments 0 39 +GBS Discharge Information Feeding Method Contraceptive Method Maternal HG B and HCT Levels
--- OUTSIDE RECORDS SUMMARY | 2024-06-23 02:02 | XMS_ITS | Encounter Summary ---
Author Organization [facility] Address [address] [facility] [address] [place] [address] Care Team Providers Care Tub Attendant Name Role Phone Abdullahi Gaspar MD Primary Care Provider [phone] Encounter Details Date Type Department Care Team (Latest Contact Info) Description 02/24/2018 2:30 PM CDT Office Visit [facility] [address] [address] [place] [address] [facility] [address] [place], [place] [id number] Hypoglycemia (Primary Dx) Social History Tobacco Use Types Packs/Day Years Used Date Smoking Tobacco: Never Alcohol Use Standard Drinks/Week Comments No 0 (1 standard drink = 0.6 oz pur e alcohol) Comments Unknown Sex and Gender Information Value Date Recorded Sex Assigned at Not on file 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 Gender Identity Not on file Sexual Orientation Not on file documented as of this encounter Last Filed Vital Signs Vital Sign Reading Time Taken Comments Blood Pressure 120/70 02/24/2018 2:37 PM CDT Pulse 94 02/24/2018 2:37 PM CDT Temperature - - Respiratory Rate 12 02/24/2018 2:37 PM CDT Oxygen Saturation - - Inhaled Oxygen Concentration - - Weight 67.6 kg (149 lb) 02/24/2018 2:37 PM CDT Height 162.6 cm (5' 4 ) 02/24/2018 2:37 PM CDT Body Mass Index 25.58 02/24/2018 2:37 PM CDT documented in this encounter Progress Notes * Alec Villa MD - 02/24/2018 2:30 PM CDT Subjective/Objective Patient ID: Meredith Bernard is a 22 y.o. female. Chief Complaint No chief complaint on file. HPI Coverage comes today with a history of feeling strongly week, without much energy She says the symptoms are started probably 2 or more years ago but they are getting worse in the last few months . She is refers to a instances which she feels extremely weak and lethargic. There occasions at nightwhen she wakes up with do sweats and feeling hot . She she then washes her face and puts on a cold cloth on and that usually relieves her symptoms. She has never had an episode of syncope. She has never had a visit at to the ER with these symptoms. 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 She would eat 3 mealsand some snacks She denies any history of gestational diabetes. She has always had regular menstrual periods. She has not had problems with acne or her loss Review of Systems Constitutional: Positive for diaphoresis and fatigue. Negative for activity change. HENT: Negative for congestion, hearing loss, trouble swallowing and voice change. Eyes: Negative for redness and visual disturbance. Respiratory: Negative for apnea, cough and chest tightness. Cardiovascular: Negative for chest pain, palpitations and leg swelling. Gastrointestinal: Negative for abdominal distention, abdominal pain, constipation, diarrhea and nausea. Endocrine: Negative for cold intolerance, heat intolerance, polydipsia, polyphagia and polyuria. Genitourinary: Negative for difficulty urinating, frequency and urgency. Musculoskeletal: Negative for arthralgias, back pain, gait problem and neck pain. Skin: Negative for color change. Allergic/Immunologic: Negative for food allergies. Neurological: Negative for dizziness, tremors, syncope, weakness, light- headedness and headaches. Hematological: Negative for adenopathy. Psychiatric/Behavioral: Negative for sleep disturbance. The patient is nervous/anxious. Physical Exam Constitutional: She is oriented to person, place, and time. She appears well-developed. HENT: Head: Normocephalic and atraumatic. Eyes: Pupils are equal, round, and reactive to light. Conjunctivae and EOM are normal. Neck: Trachea normal and phonation normal. No thyroid mass and no thyromegaly present. Cardiovascular: Normal rate, regular rhythm and normal heart sounds. No murmur heard. Pulmonary/Chest: Effort normal and breath sounds normal. Abdominal: Soft. Bowel sounds are normal. She exhibits no distension. Musculoskeletal: Normal range of motion. Neurological: She is alert and oriented to person, place, and time. She has normal reflexes. She displays normal reflexes. Coordination normal. Reflex Scores: Patellar reflexes are 2+ on the right side and 2+ on the left side. Achilles reflexes are 2+ on the right side and 2+ on the left side. No tremors Skin: Skin is warm. Psychiatric: She has a normal mood and affect. Her behavior is normal. Assessment/Plan Diagnoses and all orders for this visit: Hypoglycemia (E16.2) (Primary) Assessment & Plan: Symptoms are probably related to hypoglycemia, of unclear etiology. The history is not very clear about these being postprandial or fasting A component of anxiety might be there I have a lengthy discussion with Meredith about these considerations. I advised her on eating 3 small meals with some snacks in between I advised her against a eating rapid absorption carbohydrates It more protein rich meals and snacks I advised her also on doing blood glucose monitoring only when she has these symptoms to see there is any correlation between them and blood glucose on the fingersticks. Will see her again in 3 months Orders: - POCT glucose - POCT glycosylated hemoglobin (Hb A1C) documented in this encounter Miscellaneous Notes * Assessment & Plan Note - Alec Villa MD - 02/24/2018 4:16 PM CDTAssociated Problem(s): Hypoglycemia Symptoms are probably related to hypoglycemia, of unclear etiology. The history is not very clear about these being postprandial or fasting A component of anxiety might be there I have a lengthy discussion with Meredith about these considerations. I advised her on eating 3 small meals with some snacks in between I advised her against a eating rapid absorption carbohydrates It more protein rich meals and snacks I advised her also on doing blood glucose monitoring only when she has these symptoms to see there is any correlation between them and blood glucose on the fingersticks. Will see her again in 3 months documented in this encounter Plan of Treatment Not on file documented as of this encounter Procedures Procedure Name Priority Date/Time Associated Diagnosis Comments POCT GLYCOSYLATED HEMOGLOBIN (HGB A1C), HOME MONITOR Routine 02/24/2018 3:10 PM CDT Hypoglycemia POCT GLUCOSE Routine 02/24/2018 3:10 PM CDT Hypoglycemia documented in this encounter Results * POCT glycosylated hemoglobin (Hb A1C) (02/24/2018 3:10 PM CDT) Hemoglobin A1C, POC 5.2 Blood specimen (specimen) (Blood, Venous) 02/24/2018 3:10 PM CDT Alec Villa MD POINT OF CARE TEST ORDERABLES Fi nal Result * POCT glucose (02/24/2018 3:10 PM CDT) Glucose Blood, POC 114 mg/dL Blood specimen (specimen) 02/24/2018 3:10 PM CDT Alec Villa MD POINT OF CARE TEST ORDERABLES Fi nal Result documented in this encounter Visit Diagnoses Diagnosis Hypoglycemia- Primary Hypoglycemia, unspecified documented in this encounter Care Teams Tub Attendant Relationship Specialty Start Date End Date Abdullahi Gaspar MD [address] [place], [place] [id number] PCP - General Internal Medicine 02/24/18 documented as of this encounter
--- OUTSIDE RECORDS SUMMARY | 2024-06-23 02:02 | XMS_ITS | Encounter Summary ---
Author Organization [facility] Address [facility] [facility] [place] [address] [place] [address] Care Team Providers Care Program Coordinator For Residence Life Name Role Phone Unavailable Primary Care Provider Unavailabl e Encounter Details Date Type Department Care Team (Late st Contact Info) Description 09/29/[address] 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
--- OUTSIDE RECORDS SUMMARY | 2024-06-23 02:02 | XMS_ITS | Encounter Summary ---
Author Organization [facility] Address [facility]ly [facility] [place] [address] [place] [address] Care Team Providers Care Medical Laboratory Assistant Name Role Phone Unavailable Primary Care Provider Unavailabl e Encounter Details Date Type Department Care Team (Latest Contact Info) Description 03/11/2019 7:04 PM CDT - 03/11/2019 11:59 PM CDT Hospital Encounter [facility] [address] [place] [address] External, Ordering Provider Discharge Disposition: Home or Self Care (Routine Discharge) Social History Tobacco Use Types Packs/Day Years Used Date Smoking Tobacco: Never Assessed Comments Unknown Sex and Gender Information Value Date Recorded Sex Assigned at Not on file 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 Gender Identity Not on file Sexual Orientation Not on file documented as of this encounter Plan of Treatment Not on file documented as of this encounter Procedures Procedure Name Priority Date/Time Associated Diagnosis Comments TBGOLD-TUBERCULOSIS TST CELL MEDIATED IMMUNITY Routine 03/11/2019 7:51 PM CDT VARICELLA ZOSTER IGG Routine 03/11/2019 7:51 PM CDT HEPATITIS B SURFACE ANTIBODY Routine 03/11/2019 7:51 PM CDT documented in this encounter Results * HEPATITIS B SURFACE ANTIBODY (03/11/2019 7:51 PM CDT) HEP B SURFACE AB 360.6 >9.9 MIU/ML 03/15/2019 6:40 PM CDT [facility] Comment:INDIVIDUAL IS CONSID ERED IMMUNE TO HBV INFECTION. 03/11/2019 7:51 PM CDT us Provider Non-Staff LABORATORY Final Result Performing Organization Address [facility] Co de Phone Number [facility] [address] [place] [address], [phone] * VARICELLA ZOSTER IGG (03/11/2019 7:51 PM CDT) VARICELLA ZOSTER IGG EIA POSITIVE 03/12/2019 11:51 AM CDT [facility] Comment:IN THE ABSENCE OF AC PEORIA SYMPTOMS, A POSITIVE RESULT SUGGESTS PAST IMMUNITY. 03/11/2019 7:51 PM CDT us Ordering Provider External LABORATORY Final Result Performing Organization Address [facility] de Phone Number [facility] [address] [place] [address], [phone] * TBGOLD-TUBERCULOSIS TST CELL MEDIATED IMMUNITY (03/11/2019 7:51 PM CDT) Pathologist [facility] TB INTERPRETATION NEGATIVE 019 1:35 PM CDT [facility] Comment:NEGATIVE: No immune response to Mycobacterium tuberculosis noted. TB1 AG MINUS NIL 0.00 IU/ML 03/15/20 19 1:35 PM CDT [facility] TB2 AG MINUS NIL 0.02 IU/ML 03/15/20 19 1:35 PM CDT [facility] Comment: This test was automated and its characteristics determined by the [facility]ology Laboratory of [facility]. Automated versions of this test have not been cleared or approved by the FDA. This laboratory is regulated under CLIA as qualified to perform high complexity testing. This test is used for clinical purposes. It should not be regarded as investigational or for research. 03/11/2019 7:51 PM CDT us Ordering Provider External LABORATORY Final Result Performing Organization Address [facility] Co de Phone Number [facility] [address] [place] [address], [phone] documented in this encounter Visit Diagnoses Not on filedocumented in this encounter
--- OUTSIDE RECORDS SUMMARY | 2024-06-23 02:02 | XMS_ITS | Encounter Summary ---
Author Organization [facility] Address [facility] [facility] [place] [address] [place] [address] Care Team Providers Care Health Economist Name Role Phone Unavailable Primary Care Provider Unavailabl e Encounter Details Date Type Department Care Team (Late st Contact Info) Description 05/22/[address] 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
--- OUTSIDE RECORDS SUMMARY | 2024-06-23 02:02 | XMS_ITS | Referral Summary ---
Author Organization [facility] Address [address] [place] [address] Care Team Providers Care Rn Clinical Appeals Name Role Phone Abdullahi Gaspar MD Primary Care Provider [phone] Allergies No known active allergies Medications No known medications Active Problems Problem Noted Date Diagnosed Date Anxiety 02/24/2018 Hypoglycemia 02/24/2018 Assessment & Plan (02/24/2018 4:25 PM CDT): Symptoms are probably related to hypoglycemia, of [...] Will see her again in 3 months Social History Tobacco Use Types Packs/Day Years Used Date Smoking Tobacco: Never Alcohol Use Standard Drinks/Week Comments No 0 (1 standard drink = 0.6 oz pur e alcohol) Personal Safety Answer Date Recorded Getting School Help Needed Not on file 09/19 Comments Unknown Sex and Gender Information Value Date Recorded Sex Assigned at Not on file 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
--- OUTSIDE RECORDS SUMMARY | 2024-06-23 02:02 | XMS_ITS | Clinical Summary ---
Author Organization [facility] Address [address] [place] [address] Care Team Providers Care Pulpit Operator Name Role Phone Abdullahi Gaspar MD Primary Care Provider [phone] Allergies No known active allergies Medications No [...] Will see her again in 3 months Medical History Medical History Date Comments Anxiety Family History Medical History Relation Name Comments Diabetes Paternal Grandfather Relation Name Status Comments Paternal Grandfather Social History Tobacco Use Types Packs/Day Years Used Date Smoking Tobacco: Never Alcohol Use Standard Drinks/Week Comments No 0 (1 standard drink = 0.6 oz pur e alcohol) Personal Safety Answer Date Recorded Getting School Help Needed Not on file 09/19 Comments Unknown Sex and Gender Information Value Date Recorded Sex Assigned at Not on file 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
--- OUTSIDE RECORDS SUMMARY | 2024-06-23 02:02 | XMS_ITS | Clinical Summary ---
Author Organization [facility] Address [facility] [facility]. 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 Gender Identity Not on file Sexual Orientation Not on file Plan of Treatment Health Maintenance Due Date Last Done Comments Cervical Cancer Screening Pa p Smear (Age 21 to 29) Every 3 Years 1994 Cervical Cancer Screening Pa p Smear (Age 30 to 64) Every 3 Years 1994 Cervical Cancer Screening 1994 Annual Physical 1997 Hepatitis C 2012 DTaP, Tdap and Td Vaccines ( 1 - Tdap) 2013 Hepatitis B Vaccines (1 of 3 - 19+ 3-dose series) 2013 COVID-19 Vaccine (2023-2 5 season) 2024 Influenza Adult (#1) 2024 Cervical Cancer Screening Pa p with HPV Testing (Age 30 to 64) Every 5 Years 2024 Cervical Cancer Screening with HPV 2024 HPV Vaccines Aged Out No longer eligi ble based on patient's age to complete this topic Meningococcal Vaccine Aged Out No annalee estrada eligible based on patient's age to complete this topic Pneumococcal Vaccine: Pediat rics (0 to 5 Years) and At-Risk Patients (6 to 64 Years) Aged Out No longer eligible b ased on patient's age to complete this topic RSV Immunizations Under 20 Months Aged Out No longer eligible based on patient's age to complete this topic
--- OUTSIDE RECORDS SUMMARY | 2024-06-23 02:03 | XMS_ITS | Encounter Summary ---
Author Organization [facility] Address [address] [place] [address] Care Team Providers Care Supervisor Receiving And Processing Name Role Phone Unavailable Primary Care Provider Unavailabl e Encounter Details Date Type Department Care Team (Late st Contact Info) Description 04/30/2007 2:35 PM CDT - 04/30/2007 11:59 PM CDT Hospital Encounter [facility] Pratima Salazar MD [address] [place] [address] [address] Social History Tobacco Use Types Packs/Day Years Used Date Smoking Tobacco: Never Assessed Comments Unknown Sex and Gender Information Value Date Recorded Sex Assigned at Not on file 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
--- OUTSIDE RECORDS SUMMARY | 2024-06-23 02:03 | XMS_ITS | Encounter Summary ---
Author Organization [facility] Address [address] [place] [address] Care Team Providers Care Aquaculturist Name Role Phone Unavailable Primary Care Provider Unavailabl e Encounter Details Date Type Department Care Team (Late st Contact Info) Description 05/08/2007 11:35 AM CDT - 05/08/2007 11:59 PM CDT Hospital Encounter [facility] Pratima Salazar MD [address] [place] [address] [address] Social History Tobacco Use Types Packs/Day Years Used Date Smoking Tobacco: Never Assessed Comments Unknown Sex and Gender Information Value Date Recorded Sex Assigned at Not on file 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
--- OUTSIDE RECORDS SUMMARY | 2024-06-23 02:03 | XMS_ITS | Encounter Summary ---
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
== END 2024-06-19 09:32 | disposition home or self-care (01) ==
PROVIDERS: PCP Family Medicine; Visit Provider Family Medicine
DX: M25.50 Pain in unspecified joint (principal); F32.A Depression, unspecified
CPT/HCPCS: 36415; 80053; 82306; 82607; 82746; 84443; 84550; 85025; 85652; 86038; 86039; 86140; 86430; 86617